=== PATIENT | male | born 1945 | race Caucasian/White ===

== ENCOUNTER 2019-02-26 00:57 | Emergency (ER) | payer MEDICARE, MEDICAID ==
[~2019-02-26] VITALS: Ht 165.1 cm; Wt 48.7 kg
[~2019-02-26 00:57] MED LIST: ALBU18HF INH; ATOR40TA78 PO; BUDE0.5A INH; BUDE10.2 INH; DULO30CA2 PO; GUAI200T3 PO; LEVO750T26 PO; MAGNILIFE; NAPR500T8 PO; PRED10TA PO; TAMS-11 PO
--- NOTE | 2019-02-26 01:20 | NUR ---
Report received and care assumed. Pt resting with no s/s of acute distress. Awaiting ERP.
--- NOTE | 2019-02-26 01:53 | NUR ---
Lab at bedside.
[2019-02-26 02:02] LABS: BASOPHILS # (AUTO) 0.05 x10^3/uL (0-0.1); BASOPHILS % (AUTO) 1 % (0-1); EOSINOPHILS # (AUTO) 0.13 x10^3/uL (0-0.4); EOSINOPHILS % (AUTO) 2 % (1-7); LYMPHOCYTES # (AUTO) 2.72 x10^3/uL (1-3.4); LYMPHOCYTES % (AUTO) 32 % (22-44); MD NO; MEAN CORPUSCULAR HEMOGLOBIN 35.3 pg (27.5-34.5); MEAN CORPUSCULAR HGB CONC 33.5 g/dL (33.2-36.2); MEAN CORPUSCULAR VOLUME 105.3 fL (81-97); MEAN PLATELET VOLUME 6.6 fL (7.4-10.4); MONOCYTES # (AUTO) 0.52 x10^3/uL (0.2-0.8); MONOCYTES % (AUTO) 6 % (2-9); NEUTROPHILS # (AUTO) 5.07 x10^3/uL (1.8-6.8); NEUTROPHILS % (AUTO) 60 % (42-75); PLATELET COUNT 211 x10^3/uL (130-400); RED BLOOD COUNT 3.78 x10^6/uL (4.38-5.82); RED CELL DISTRIBUTION WIDTH 14.4 % (9.4-14.8)
[2019-02-26 02:13] LABS: ALANINE AMINOTRANSFERASE 16 U/L (12-78); ALBUMIN 3.4 g/dL (3.4-5.0); ANION GAP 4 mmol/L (5-15); CALCIUM 8.3 mg/dL (8.5-10.1); CHLORIDE 106 mmol/L (98-107); CREATININE 0.68 mg/dL (0.7-1.3)
[2019-02-26 02:17] LABS: ALKALINE PHOSPHATASE 39 U/L (45-117); BILIRUBIN,TOTAL 0.3 mg/dL (0.2-1.0); TOTAL PROTEIN 6.3 g/dL (6.4-8.2); TROPONIN I < 0.015 ng/mL (0.000-0.045)
--- NOTE | 2019-02-26 02:50 | NUR ---
Assisted pt with urinal at bedside. No further needs expressed. Awaiting xray results. Call light in reach.
[2019-02-26] MEDS ORDERED: ACETAMINOPHEN 500 MG TABLET PO ONE (03:30)
[2019-02-26] MEDS ORDERED: ACETAMINOPHEN 500 MG TABLET ONE (03:35)
[2019-02-26 03:54] VITALS: BP 124/91
== END 2019-02-26 03:58 | disposition home or self-care (01) ==
LOC: ED 02:34
DX: R07.89 Other chest pain (principal); M79.602 Pain in left arm; R06.02 Shortness of breath; I25.10 Atherosclerotic heart disease of native coronary artery without angina pectoris; I10 Essential (primary) hypertension; Z98.61 Coronary angioplasty status
CPT/HCPCS: 36415; 71045; 80053; 84484; 85025; 93005; 99284

== ENCOUNTER 2019-03-02 05:08 | Observation (INO) | payer MEDICARE, MEDICAID ==
[2019-03-02] VITALS (7 sets, daily range): BP systolic 113–175; BP diastolic 73–90
[~2019-03-02] VITALS: Ht 170.2 cm; Wt 53.0 kg
[2019-03-02] MEDS ORDERED: MORPHINE SULFATE 4 MG/ML, 1ML ONE (05:49)
[2019-03-02] MEDS: MORPHINE SULFATE 4 MG/ML, 1ML IVPush PRN ×2 (05:51→09:32)
[2019-03-02 06:07] LABS: ALANINE AMINOTRANSFERASE 16 U/L (12-78); ALBUMIN 3.4 g/dL (3.4-5.0); ANION GAP 3 mmol/L (5-15); CALCIUM 8.3 mg/dL (8.5-10.1); CHLORIDE 107 mmol/L (98-107); CREATININE 0.69 mg/dL (0.7-1.3)
[2019-03-02 06:12] LABS: ALKALINE PHOSPHATASE 32 U/L (45-117); BILIRUBIN,TOTAL 0.4 mg/dL (0.2-1.0); TOTAL PROTEIN 6.4 g/dL (6.4-8.2); TROPONIN I < 0.015 ng/mL (0.000-0.045)
--- NOTE | 2019-03-02 06:59 | NUR ---
received report from Aejordyn. pt upright on gurney with eyes closed, [place] but responds approp to staff, NAD, comfort measures provided, call light within reach.
[2019-03-02 07:32] LABS: MEAN CORPUSCULAR HEMOGLOBIN 35.2 pg (27.5-34.5); MEAN CORPUSCULAR HGB CONC 33.5 g/dL (33.2-36.2); MEAN CORPUSCULAR VOLUME 105.3 fL (81-97); MEAN PLATELET VOLUME 6.6 fL (7.4-10.4); PLATELET COUNT 211 x10^3/uL (130-400); RED BLOOD COUNT 3.79 x10^6/uL (4.38-5.82); RED CELL DISTRIBUTION WIDTH 14.4 % (9.4-14.8)
[2019-03-02 07:34] LABS: BASOPHILS # (AUTO) 0.02 x10^3/uL (0-0.1); BASOPHILS % (AUTO) 0 % (0-1); EOSINOPHILS # (AUTO) 0.24 x10^3/uL (0-0.4); EOSINOPHILS % (AUTO) 4 % (1-7); LYMPHOCYTES # (AUTO) 1.71 x10^3/uL (1-3.4); LYMPHOCYTES % (AUTO) 29 % (22-44); MD SCAN; MONOCYTES # (AUTO) 0.55 x10^3/uL (0.2-0.8); MONOCYTES % (AUTO) 9 % (2-9); NEUTROPHILS # (AUTO) 3.38 x10^3/uL (1.8-6.8); NEUTROPHILS % (AUTO) 57 % (42-75)
--- NOTE | 2019-03-02 07:58 | NUR ---
pt remains upright on gurney with eyes closed, [place] but responds approp to staff, NAD, comfort measures provided, call light within reach.
--- NOTE | 2019-03-02 08:16 | NUR ---
Pt to be admitted to [facility], room 511-1. Report called to Juanita.
[2019-03-02] MEDS ORDERED: NITROGLYCERIN 0.4 MG BOTTLE (25 TABS) SL ONE (09:05)
[2019-03-02] MEDS ORDERED: NITROGLYCERIN 0.4 MG/SPRAY SL PRN (09:30)
[2019-03-02] MEDS ORDERED: NITROGLYCERIN 0.4 MG BOTTLE (25 TABS) SL PRN (09:30)
[2019-03-02] MEDS ORDERED: ONDANSETRON 2MG/ML, 2ML IVPush PRN (10:30)
[2019-03-02] MEDS ORDERED: LABETALOL 5MG/ML, 20ML IVPush PRN (10:30)
[2019-03-02] MEDS ORDERED: morphine SULFATE 10 MG/ML, 1ML IVPush PRN (10:30)
[2019-03-02] MEDS: SODIUM CHLORIDE 0.9% 1,000 ML IV SCH (11:06)
[2019-03-02] MEDS: ENOXAPARIN 40 MG/0.4 ML SQ SCH (11:09)
[2019-03-02 12:01] LABS: TROPONIN I < 0.015 ng/mL (0.000-0.045)
[2019-03-02] MEDS ORDERED: GADOBUTROL 7.5 MMOL/7.5 ML PFS ONE (12:01)
[2019-03-02] MEDS: CYCLOBENZAPRINE 10 MG TABLET PO PRN (12:32)
[2019-03-02] MEDS ORDERED: METH500T97 PO (13:31)
[2019-03-02] MEDS ORDERED: IBUP-1222 PO (13:31)
[2019-03-02] MEDS ORDERED: DULO30CA43 PO (13:31)
[2019-03-02 16:59] LABS: TROPONIN I < 0.015 ng/mL (0.000-0.045)
[2019-03-02] MEDS: ACETAMINOPHEN 325 MG TABLET PO PRN (17:58)
[2019-03-02] MEDS ORDERED: ATORVASTATIN 40 MG TABLET PO SCH (21:00)
[2019-03-02] MEDS ORDERED: BUDESONIDE 0.5 MG/2 ML INHA INH SCH (21:00)
[2019-03-02] MEDS: CALCIUM CARBONATE 500 MG TAB.CHEW PO SCH (21:25)
[2019-03-02] MEDS: LISINOPRIL 10 MG TABLET PO SCH (21:25)
[2019-03-02 22:51] LABS: TROPONIN I < 0.015 ng/mL (0.000-0.045)
[2019-03-03] MEDS: ACETAMINOPHEN 325 MG TABLET PO PRN (00:36)
[2019-03-03] MEDS: CYCLOBENZAPRINE 10 MG TABLET PO PRN (00:36)
[2019-03-03 00:37] VITALS: BP 148/74
[2019-03-03 05:07] LABS: BASOPHILS # (AUTO) 0.02 x10^3/uL (0-0.1); BASOPHILS % (AUTO) 0 % (0-1); EOSINOPHILS # (AUTO) 0.24 x10^3/uL (0-0.4); EOSINOPHILS % (AUTO) 4 % (1-7); LYMPHOCYTES # (AUTO) 1.67 x10^3/uL (1-3.4); LYMPHOCYTES % (AUTO) 28 % (22-44); MD NO; MEAN CORPUSCULAR HEMOGLOBIN 34.1 pg (27.5-34.5); MEAN CORPUSCULAR HGB CONC 33.1 g/dL (33.2-36.2); MEAN CORPUSCULAR VOLUME 103.1 fL (81-97); MEAN PLATELET VOLUME 6.5 fL (7.4-10.4); MONOCYTES # (AUTO) 0.52 x10^3/uL (0.2-0.8); MONOCYTES % (AUTO) 9 % (2-9); NEUTROPHILS # (AUTO) 3.64 x10^3/uL (1.8-6.8); NEUTROPHILS % (AUTO) 60 % (42-75); PLATELET COUNT 198 x10^3/uL (130-400); RED CELL DISTRIBUTION WIDTH 14.5 % (9.4-14.8)
[2019-03-03 05:12] LABS: ALBUMIN 3.4 g/dL (3.4-5.0); ANION GAP 2 mmol/L (5-15); CALCIUM 8.6 mg/dL (8.5-10.1); CHLORIDE 106 mmol/L (98-107)
[2019-03-03 05:18] LABS: ALANINE AMINOTRANSFERASE 18 U/L (12-78); ALKALINE PHOSPHATASE 40 U/L (45-117); BILIRUBIN,TOTAL 0.5 mg/dL (0.2-1.0); CREATININE 0.67 mg/dL (0.7-1.3); TOTAL PROTEIN 6.4 g/dL (6.4-8.2)
[2019-03-03] MEDS: SODIUM CHLORIDE 0.9% 1,000 ML IV SCH (07:21)
[2019-03-03 07:40] VITALS: BP 136/76
[2019-03-03] MEDS: CALCIUM CARBONATE 500 MG TAB.CHEW PO SCH (08:40)
[2019-03-03] MEDS: LISINOPRIL 10 MG TABLET PO SCH (08:40)
[2019-03-03] MEDS: ENOXAPARIN 40 MG/0.4 ML SQ SCH (08:40)
[2019-03-03] MEDS ORDERED: REGADENOSON 0.4 MG/5 ML SYRINGE ONE (08:43)
[2019-03-03] MEDS ORDERED: TAMSULOSIN 0.4 MG CAP.ER.24H PO SCH (09:00)
[2019-03-03] MEDS ORDERED: LISI-167 PO (14:32)
[2019-03-03 15:26] VITALS: BP 110/83
== END 2019-03-03 15:55 | disposition home or self-care (01) ==
LOC: ED 05:42 → 5SO 07:54 → INTOOBSV 07:54 → 5SO 08:34 → DCLOUNGE 03-03 15:40
PROVIDERS: ADMIT Internal Medicine; ATTEND Internal Medicine
DX: R07.89 Other chest pain (principal); M79.602 Pain in left arm; I25.10 Atherosclerotic heart disease of native coronary artery without angina pectoris; J44.1 Chronic obstructive pulmonary disease with (acute) exacerbation; E83.52 Hypercalcemia; I10 Essential (primary) hypertension; G31.89 Other specified degenerative diseases of nervous system; Z87.891 Personal history of nicotine dependence; Z68.1 Body mass index [BMI] 19.9 or less, adult; Z95.5 Presence of coronary angioplasty implant and graft; Z59.0 Homelessness; Z79.899 Other long term (current) drug therapy
CPT/HCPCS: 36415; 70553; 71045; 78452; 80053; 83690; 83735; 84100; 84484; 85025; 92610; 93005; 93017; 96372; 96374; 96376; 97161; 99284; A9502; A9585; C9898; G0378; J1650; J2270; J2785; J7030

== ENCOUNTER 2019-03-31 10:31 | Emergency (ER) | payer MEDICARE, MEDICAID ==
[~2019-03-31] VITALS: Ht 170.2 cm; Wt 54.5 kg
[2019-03-31 13:19] VITALS: BP 119/65
== END 2019-03-31 13:12 | disposition home or self-care (01) ==
LOC: ED 12:15
DX: R05 Cough (principal); R42 Dizziness and giddiness; R53.1 Weakness; J44.9 Chronic obstructive pulmonary disease, unspecified; I10 Essential (primary) hypertension; I25.10 Atherosclerotic heart disease of native coronary artery without angina pectoris; Z98.61 Coronary angioplasty status
CPT/HCPCS: 36415; 71045; 80053; 83880; 84484; 85025; 93005; 99284

== ENCOUNTER 2019-06-27 16:20 | Inpatient (IN) | payer MEDICAID, MEDICARE, OTHER ==
[~2019-06-27] VITALS: Ht 170.2 cm; Wt 55.8 kg
[~2019-06-27 16:20] MED LIST changes: +ACET325T26 PO; +ALBU6.7H8 INH; +CLOP75TA52 PO; +DULO30CA44 PO; -GUAI200T3 PO; +GUAI200T37 PO; +IBUP-1222 PO; +LISI-167 PO; +METH500T97 PO; +RANI150C PO
--- NOTE | 2019-06-27 16:40 | NUR ---
[facility] "3-10 DAYS", 87% RA UPON ARRIVAL PER EMS, NOW 98% 2L NC. SKIN WARM, PINK, DRY. HX COPD, CHF, CVA, HTN, PA WITH CARDIAC STENT (2007). DENIES CP. PATIENT REPORTS GLF TODAY, DENIES HITTING HEAD/NECK PAIN/LOC. MANAGED CARE LIAISON ON PATIENT, AWAITING MD ORDERS, CALL LIGHT WITHIN REACH.
[2019-06-27] MEDS ORDERED: SODIUM CHLORIDE FLUSH 10ML SYR IVF ONE (17:00)
[2019-06-27] MEDS ORDERED: methylPREDNISolone SOD SUCC 125 MG/2 ML IV ONE (17:00)
[2019-06-27 17:12] LABS: ALBUMIN 3.8 g/dL (3.4-5.0); ANION GAP 3 mmol/L (5-15); CALCIUM 8.6 mg/dL (8.5-10.1); CHLORIDE 105 mmol/L (98-107); CREATININE 0.96 mg/dL (0.7-1.3)
[2019-06-27 17:13] LABS: BASOPHILS # (AUTO) 0.02 x10^3/uL (0-0.1); BASOPHILS % (AUTO) 0 % (0-1); EOSINOPHILS # (AUTO) 0.17 x10^3/uL (0-0.4); EOSINOPHILS % (AUTO) 2 % (1-7); LYMPHOCYTES # (AUTO) 1.42 x10^3/uL (1-3.4); LYMPHOCYTES % (AUTO) 18 % (22-44); MD NO; MEAN CORPUSCULAR HEMOGLOBIN 35.4 pg (27.5-34.5); MEAN CORPUSCULAR HGB CONC 33.9 g/dL (33.2-36.2); MEAN CORPUSCULAR VOLUME 104.6 fL (81-97); MEAN PLATELET VOLUME 7.2 fL (7.4-10.4); MONOCYTES # (AUTO) 0.85 x10^3/uL (0.2-0.8); MONOCYTES % (AUTO) 11 % (2-9); NEUTROPHILS # (AUTO) 5.38 x10^3/uL (1.8-6.8); NEUTROPHILS % (AUTO) 69 % (42-75); PLATELET COUNT 171 x10^3/uL (130-400); RED BLOOD COUNT 3.67 x10^6/uL (4.38-5.82); RED CELL DISTRIBUTION WIDTH 13.9 % (9.4-14.8)
--- NOTE | 2019-06-27 17:14 | NUR ---
VS UPDATED IN CHART, AWAITING RESULTS. RESP EVEN/UNLABORED. NADN.
[2019-06-27 17:15] LABS: TROPONIN I < 0.015 ng/mL (0.000-0.045)
[2019-06-27] MEDS ORDERED: methylPREDNISolone SOD SUCC 125 MG/2 ML ONE (17:16)
[2019-06-27] MEDS ORDERED: ALBUTEROL/IPRATROPIUM 2.5MG/0.5MG, 3 ML ONE ×2 (17:16→18:15)
[2019-06-27] MEDS: ALBUTEROL/IPRATROPIUM 2.5MG/0.5MG, 3 ML NPPB SCH ×2 (17:22→18:23)
--- NOTE | 2019-06-27 18:08 | NUR ---
VS UPDATED IN CHART, CHART UP FOR RECHECK. ALL RESULTS BACK. PATIENT SLEEPING IN RNEY, VISIBLE CHEST RISE AND FALL, NADN. AWAITING FURTHER ORDERS.
[2019-06-27] MEDS ORDERED: ONDANSETRON 2MG/ML, 2ML IVPush PRN (18:30)
[2019-06-27] MEDS ORDERED: SODIUM CHLORIDE FLUSH 10ML SYR IVF PRN (18:30)
[2019-06-27] MEDS ORDERED: ALBUTEROL/IPRATROPIUM 2.5MG/0.5MG, 3 ML HHN PRN (18:30)
[2019-06-27] MEDS ORDERED: ATOR-2 PO (18:41)
--- NOTE | 2019-06-27 19:24 | NUR ---
REPORT TO JOSLYN SAUL.
[2019-06-27] MEDS ORDERED: ALBUTEROL/IPRATROPIUM 2.5MG/0.5MG, 3 ML NPPB PRN (19:30)
[2019-06-27 20:02] VITALS: BP 105/69
[2019-06-27] MEDS: AZITHROMYCIN 500 MG in SODIUM CHLORIDE 0.9% 250 ML IV SCH (20:18)
[2019-06-27 21:31] LABS: RAPID INFLUENZA A Negative (Negative); RAPID INFLUENZA B Negative (Negative)
[2019-06-27] MEDS ORDERED: FLU VACC QS2019-20 36MOS UP/PF 0.5 ML IM-VACC ONE (22:30)
[2019-06-28 01:12] VITALS: BP 105/58
[2019-06-28] MEDS: methylPREDNISolone SOD SUCC 125 MG/2 ML IV SCH ×3 (04:40→21:16)
[2019-06-28 04:44] LABS: BASOPHILS # (AUTO) 0.01 x10^3/uL (0-0.1); BASOPHILS % (AUTO) 0 % (0-1); EOSINOPHILS % (AUTO) 0 % (1-7); LYMPHOCYTES # (AUTO) 0.76 x10^3/uL (1-3.4); LYMPHOCYTES % (AUTO) 12 % (22-44); MD NO; MEAN CORPUSCULAR HEMOGLOBIN 34.7 pg (27.5-34.5); MEAN CORPUSCULAR HGB CONC 32.9 g/dL (33.2-36.2); MEAN CORPUSCULAR VOLUME 105.6 fL (81-97); MEAN PLATELET VOLUME 7.1 fL (7.4-10.4); MONOCYTES # (AUTO) 0.13 x10^3/uL (0.2-0.8); MONOCYTES % (AUTO) 2 % (2-9); NEUTROPHILS # (AUTO) 5.42 x10^3/uL (1.8-6.8); NEUTROPHILS % (AUTO) 86 % (42-75); PLATELET COUNT 176 x10^3/uL (130-400); RED BLOOD COUNT 3.69 x10^6/uL (4.38-5.82); RED CELL DISTRIBUTION WIDTH 13.2 % (9.4-14.8)
[2019-06-28 04:54] LABS: ANION GAP 7 mmol/L (5-15); CALCIUM 8.5 mg/dL (8.5-10.1); CHLORIDE 108 mmol/L (98-107); CREATININE 0.77 mg/dL (0.7-1.3)
[2019-06-28 04:57] LABS: TROPONIN I < 0.015 ng/mL (0.000-0.045)
[2019-06-28] MEDS: ALBUTEROL/IPRATROPIUM 2.5MG/0.5MG, 3 ML NPPB SCH ×4 (07:44→18:47)
[2019-06-28 07:54] VITALS: BP 110/61
[2019-06-28 14:08] VITALS: BP 94/51
[2019-06-28 19:47] VITALS: BP 97/56
[2019-06-28] MEDS: AZITHROMYCIN 500 MG in SODIUM CHLORIDE 0.9% 250 ML IV SCH (20:09)
[2019-06-29 01:57] VITALS: BP 94/60
[2019-06-29] MEDS: methylPREDNISolone SOD SUCC 125 MG/2 ML IV SCH ×3 (05:13→21:18)
[2019-06-29] MEDS: ALBUTEROL/IPRATROPIUM 2.5MG/0.5MG, 3 ML NPPB SCH ×4 (06:49→19:14)
[2019-06-29 08:30] VITALS: BP 117/66
[2019-06-29] MEDS: ACETAMINOPHEN 325 MG TABLET PO PRN (11:15)
[2019-06-29] MEDS: LORATADINE 10 MG TABLET PO SCH (11:15)
[2019-06-29] MEDS: GUAIFENESIN ER 600 MG TABLET PO SCH ×2 (11:15→21:18)
[2019-06-29 13:39] VITALS: BP 123/67
[2019-06-29 19:31] VITALS: BP 100/57
[2019-06-29] MEDS: AZITHROMYCIN 500 MG in SODIUM CHLORIDE 0.9% 250 ML IV SCH (20:26)
[2019-06-29] MEDS: ATORVASTATIN 20 MG TABLET PO SCH (21:18)
[2019-06-30 02:03] VITALS: BP 122/72
[2019-06-30] MEDS: methylPREDNISolone SOD SUCC 125 MG/2 ML IV SCH ×3 (05:07→20:32)
[2019-06-30 05:37] LABS: BASOPHILS # (AUTO) 0.01 x10^3/uL (0-0.1); BASOPHILS % (AUTO) 0 % (0-1); EOSINOPHILS % (AUTO) 0 % (1-7); LYMPHOCYTES # (AUTO) 0.93 x10^3/uL (1-3.4); LYMPHOCYTES % (AUTO) 11 % (22-44); MD NO; MEAN CORPUSCULAR HEMOGLOBIN 34.4 pg (27.5-34.5); MEAN CORPUSCULAR VOLUME 104.2 fL (81-97); MONOCYTES # (AUTO) 0.24 x10^3/uL (0.2-0.8); MONOCYTES % (AUTO) 3 % (2-9); NEUTROPHILS # (AUTO) 7.35 x10^3/uL (1.8-6.8); NEUTROPHILS % (AUTO) 86 % (42-75); PLATELET COUNT 185 x10^3/uL (130-400); RED CELL DISTRIBUTION WIDTH 13.6 % (9.4-14.8)
[2019-06-30 05:43] LABS: ANION GAP 5 mmol/L (5-15); CALCIUM 8.4 mg/dL (8.5-10.1); CHLORIDE 109 mmol/L (98-107); CREATININE 0.84 mg/dL (0.7-1.3)
[2019-06-30] MEDS: ALBUTEROL/IPRATROPIUM 2.5MG/0.5MG, 3 ML NPPB SCH ×4 (06:30→20:06)
[2019-06-30 07:40] VITALS: BP 110/62
[2019-06-30] MEDS: GUAIFENESIN ER 600 MG TABLET PO SCH ×2 (08:46→20:32)
[2019-06-30] MEDS: LORATADINE 10 MG TABLET PO SCH (08:46)
[2019-06-30] MEDS: CLOPIDOGREL 75 MG TABLET PO SCH (08:47)
[2019-06-30] MEDS: ACETAMINOPHEN 325 MG TABLET PO PRN (13:19)
[2019-06-30 13:45] VITALS: BP 132/54
[2019-06-30 16:31] VITALS: BP 148/87
[2019-06-30] MEDS ORDERED: FLU VACC QS2019-20 36MOS UP/PF 0.5 ML IM-VACC ONE (18:30)
[2019-06-30 19:32] VITALS: BP 131/70
[2019-06-30] MEDS: ATORVASTATIN 20 MG TABLET PO SCH (20:32)
[2019-06-30] MEDS: DOXYCYCLINE 100MG TABLET PO SCH (20:32)
[2019-07-01 01:56] VITALS: BP 129/73
[2019-07-01] MEDS: ALBUTEROL/IPRATROPIUM 2.5MG/0.5MG, 3 ML NPPB SCH ×4 (06:53→18:56)
[2019-07-01 07:44] LABS: BASOPHILS # (AUTO) 0.02 x10^3/uL (0-0.1); BASOPHILS % (AUTO) 0 % (0-1); EOSINOPHILS % (AUTO) 0 % (1-7); LYMPHOCYTES # (AUTO) 1.41 x10^3/uL (1-3.4); LYMPHOCYTES % (AUTO) 18 % (22-44); MD NO; MEAN CORPUSCULAR HEMOGLOBIN 34.2 pg (27.5-34.5); MEAN CORPUSCULAR HGB CONC 32.8 g/dL (33.2-36.2); MEAN CORPUSCULAR VOLUME 104.3 fL (81-97); MEAN PLATELET VOLUME 7.2 fL (7.4-10.4); MONOCYTES # (AUTO) 0.46 x10^3/uL (0.2-0.8); MONOCYTES % (AUTO) 6 % (2-9); NEUTROPHILS # (AUTO) 5.79 x10^3/uL (1.8-6.8); NEUTROPHILS % (AUTO) 75 % (42-75); PLATELET COUNT 207 x10^3/uL (130-400); RED BLOOD COUNT 3.58 x10^6/uL (4.38-5.82); RED CELL DISTRIBUTION WIDTH 13.6 % (9.4-14.8)
[2019-07-01 07:53] LABS: ANION GAP 4 mmol/L (5-15); CALCIUM 8.4 mg/dL (8.5-10.1); CHLORIDE 107 mmol/L (98-107); CREATININE 0.66 mg/dL (0.7-1.3)
[2019-07-01] MEDS: DOXYCYCLINE 100MG TABLET PO SCH ×2 (08:43→20:40)
[2019-07-01] MEDS: methylPREDNISolone SOD SUCC 125 MG/2 ML IV SCH ×2 (08:43→20:40)
[2019-07-01] MEDS: CLOPIDOGREL 75 MG TABLET PO SCH (08:43)
[2019-07-01] MEDS: GUAIFENESIN ER 600 MG TABLET PO SCH ×2 (08:43→20:40)
[2019-07-01] MEDS: LORATADINE 10 MG TABLET PO SCH (08:43)
[2019-07-01 09:25] VITALS: BP 110/68
[2019-07-01 15:49] VITALS: BP 97/66
[2019-07-01 20:02] VITALS: BP 116/57
[2019-07-01] MEDS: ATORVASTATIN 20 MG TABLET PO SCH (20:40)
[2019-07-02 00:50] VITALS: BP 150/73
[2019-07-02] MEDS: ALBUTEROL/IPRATROPIUM 2.5MG/0.5MG, 3 ML NPPB SCH (07:57)
[2019-07-02 08:52] VITALS: BP 106/57
[2019-07-02] MEDS ORDERED: ALBUTEROL/IPRATROPIUM 2.5MG/0.5MG, 3 ML NPPB SCH (10:30)
[2019-07-02] MEDS: CLOPIDOGREL 75 MG TABLET PO SCH (10:36)
[2019-07-02] MEDS: methylPREDNISolone SOD SUCC 125 MG/2 ML IV SCH (10:36)
[2019-07-02] MEDS: LORATADINE 10 MG TABLET PO SCH (10:37)
[2019-07-02] MEDS: GUAIFENESIN ER 600 MG TABLET PO SCH (10:37)
[2019-07-02] MEDS: DOXYCYCLINE 100MG TABLET PO SCH (10:37)
[2019-07-02 12:03] VITALS: BP 115/62
[2019-07-02] MEDS ORDERED: PRED10TA PO (16:17)
[2019-07-02] MEDS ORDERED: GUAI600T31 PO (16:17)
[2019-07-02] MEDS ORDERED: DOXY100T PO (16:17)
== END 2019-07-02 18:30 | disposition home or self-care (01) | DRG 189 ==
LOC: ED 17:39 → 3N 19:22
PROVIDERS: ADMIT Internal Medicine; ATTEND Internal Medicine
DX: J96.01 Acute respiratory failure with hypoxia (principal); J44.0 Chronic obstructive pulmonary disease with (acute) lower respiratory infection; J44.1 Chronic obstructive pulmonary disease with (acute) exacerbation; E46 Unspecified protein-calorie malnutrition; Z68.1 Body mass index [BMI] 19.9 or less, adult; R07.81 Pleurodynia; I25.10 Atherosclerotic heart disease of native coronary artery without angina pectoris; J20.9 Acute bronchitis, unspecified; I10 Essential (primary) hypertension; F17.200 Nicotine dependence, unspecified, uncomplicated; Z95.5 Presence of coronary angioplasty implant and graft; Z82.49 Family history of ischemic heart disease and other diseases of the circulatory system; Z88.0 Allergy status to penicillin; Z88.8 Allergy status to other drugs, medicaments and biological substances; Z23 Encounter for immunization
CPT/HCPCS: 36415; 71045; 80048; 82040; 83605; 83880; 84484; 85025; 87040; 87400; 90686; 93005; 94640; 99285; G0378; J0456; J7620; J2930; J7050

== ENCOUNTER 2019-09-11 15:53 | Emergency (ER) | payer OTHER ==
[~2019-09-11] VITALS: Ht 170.2 cm; Wt 57.0 kg
[~2019-09-11 15:53] MED LIST changes: +ATOR-2 PO; +DOXY100T PO; +GUAI600T31 PO
[2019-09-11] MEDS ORDERED: ALBUTEROL/IPRATROPIUM 2.5MG/0.5MG, 3 ML ONE (16:47)
[2019-09-11 16:54] LABS: BASOPHILS # (AUTO) 0.01 x10^3/uL (0-0.1); BASOPHILS % (AUTO) 0 % (0-1); EOSINOPHILS # (AUTO) 0.19 x10^3/uL (0-0.4); EOSINOPHILS % (AUTO) 3 % (1-7); LYMPHOCYTES # (AUTO) 1.49 x10^3/uL (1-3.4); LYMPHOCYTES % (AUTO) 25 % (22-44); MD NO; MEAN CORPUSCULAR HGB CONC 33.6 g/dL (33.2-36.2); MEAN CORPUSCULAR VOLUME 100.9 fL (81-97); MONOCYTES # (AUTO) 0.59 x10^3/uL (0.2-0.8); MONOCYTES % (AUTO) 10 % (2-9); NEUTROPHILS # (AUTO) 3.71 x10^3/uL (1.8-6.8); NEUTROPHILS % (AUTO) 62 % (42-75); PLATELET COUNT 207 x10^3/uL (130-400); RED CELL DISTRIBUTION WIDTH 14.1 % (9.4-14.8)
[2019-09-11] MEDS ORDERED: ALBUTEROL/IPRATROPIUM 2.5MG/0.5MG, 3 ML NPPB ONE (17:00)
[2019-09-11] MEDS ORDERED: SODIUM CHLORIDE FLUSH 10ML SYR IVF ONE (17:00)
[2019-09-11] MEDS ORDERED: SODIUM CHLORIDE 0.9% 1,000ML IVBOLUS ONE (17:00)
[2019-09-11 17:02] LABS: ALANINE AMINOTRANSFERASE 14 U/L (12-78); ALBUMIN 3.8 g/dL (3.4-5.0); ANION GAP 4 mmol/L (5-15); CHLORIDE 107 mmol/L (98-107); CREATININE 0.85 mg/dL (0.7-1.3)
[2019-09-11 17:04] LABS: ALKALINE PHOSPHATASE 60 U/L (45-117); BILIRUBIN,TOTAL 0.5 mg/dL (0.2-1.0); TOTAL PROTEIN 7.2 g/dL (6.4-8.2)
[2019-09-11 17:45] VITALS: BP 138/70
--- NOTE | 2019-09-11 17:46 | NUR ---
pt resting back in bed, respirations even and unlabored. pt desat while asleep on RA, placed on NC and came up to mid 90's. additional blanket placed for pt comfort. NAD noted at this time. No further needs at this time. Side rail up, call light in reach.
--- NOTE | 2019-09-11 19:10 | NUR ---
PT AMBULATES WELL INDEPENDENTLY MAINTAINING O2 SAT 93% ON RA. AMBULATES TO BATHROOM.
== END 2019-09-11 19:31 | disposition home or self-care (01) ==
LOC: ED 16:39
DX: J44.1 Chronic obstructive pulmonary disease with (acute) exacerbation (principal); I25.10 Atherosclerotic heart disease of native coronary artery without angina pectoris; I10 Essential (primary) hypertension; Z98.61 Coronary angioplasty status; Z95.5 Presence of coronary angioplasty implant and graft
CPT/HCPCS: 36415; 71045; 80053; 83605; 84145; 85025; 87040; 93005; 94640; 99284; J7030; J7620; 99283

== ENCOUNTER 2019-10-03 17:15 | Inpatient (IN) | payer OTHER ==
[~2019-10-03] VITALS: Ht 170.2 cm; Wt 57.0 kg
--- NOTE | 2019-10-03 17:26 | NUR ---
PT BIB [facility] FOR SOB, INCREASED WOB AND O2 NEED. PER EMS, PT HAS HX COPD AND DOES NOT WEAR O2 AT HOME. PT RECEIVED 400ML NS EN ROUTE, BREATHING TX X 2, AND O2 THERAPY AT 4L NC. PT AAO X 4, TRIPOD POSITIONING, ACCESSORY MUSCLE USE. PT HAS STRONG COUGH WITH SOB POST COUGH. PT DRESSED IN GOWN AND ON FULL MONITOR. SIDERAIL X [address] CALL LIGHT WITHIN REACH. PIV ESTABLISHED BY EMS EN ROUTE.
--- NOTE | 2019-10-03 17:39 | NUR ---
AT BEDSIDE FOR EXAM.
[2019-10-03] MEDS ORDERED: methylPREDNISolone SOD SUCC 125 MG/2 ML ONE (17:42)
--- NOTE | 2019-10-03 17:45 | NUR ---
PT MEDICATED PER ORDER, LAB AT BEDSIDE.
[2019-10-03] MEDS ORDERED: SODIUM CHLORIDE FLUSH 10ML SYR IVF ONE (18:00)
[2019-10-03] MEDS ORDERED: methylPREDNISolone SOD SUCC 125 MG/2 ML IV ONE (18:00)
[2019-10-03 18:14] LABS: BASOPHILS # (AUTO) 0.01 x10^3/uL (0-0.1); BASOPHILS % (AUTO) 0 % (0-1); EOSINOPHILS # (AUTO) 0.08 x10^3/uL (0-0.4); EOSINOPHILS % (AUTO) 1 % (1-7); LYMPHOCYTES # (AUTO) 1.34 x10^3/uL (1-3.4); LYMPHOCYTES % (AUTO) 17 % (22-44); MD NO; MEAN CORPUSCULAR HEMOGLOBIN 34.1 pg (27.5-34.5); MEAN CORPUSCULAR HGB CONC 33.2 g/dL (33.2-36.2); MEAN CORPUSCULAR VOLUME 102.5 fL (81-97); MONOCYTES # (AUTO) 0.86 x10^3/uL (0.2-0.8); MONOCYTES % (AUTO) 11 % (2-9); NEUTROPHILS # (AUTO) 5.67 x10^3/uL (1.8-6.8); NEUTROPHILS % (AUTO) 71 % (42-75); PLATELET COUNT 230 x10^3/uL (130-400); RED BLOOD COUNT 3.72 x10^6/uL (4.38-5.82); RED CELL DISTRIBUTION WIDTH 14.3 % (9.4-14.8)
[2019-10-03] MEDS ORDERED: ALBUTEROL/IPRATROPIUM 2.5MG/0.5MG, 3 ML ONE ×2 (18:18→18:47)
[2019-10-03 18:23] LABS: ALBUMIN 3.9 g/dL (3.4-5.0); ANION GAP 5 mmol/L (5-15); CALCIUM 8.5 mg/dL (8.5-10.1); CHLORIDE 105 mmol/L (98-107)
[2019-10-03] MEDS: ALBUTEROL/IPRATROPIUM 2.5MG/0.5MG, 3 ML NPPB SCH ×3 (18:25→22:05)
[2019-10-03 18:28] LABS: ALANINE AMINOTRANSFERASE 9 U/L (12-78); ALKALINE PHOSPHATASE 67 U/L (45-117); BILIRUBIN,TOTAL 0.6 mg/dL (0.2-1.0); CREATININE 0.78 mg/dL (0.7-1.3); TOTAL PROTEIN 7.6 g/dL (6.4-8.2); TROPONIN I < 0.015 ng/mL (0.000-0.045)
[2019-10-03] MEDS ORDERED: SODIUM CHLORIDE FLUSH 10ML SYR IVF PRN (18:30)
[2019-10-03 18:39] LABS: INTERNATIONAL NORMALIZED RATIO 0.91 (0.93-1.1); PROTHROMBIN TIME 9.6 Seconds (9.6-11.5)
--- NOTE | 2019-10-03 18:41 | NUR ---
[facility] AT BEDSIDE.
[2019-10-03] MEDS ORDERED: POLYETHYLENE GLYCOL 17 GM PACKET PO PRN (19:00)
[2019-10-03] MEDS ORDERED: GUAIFENESIN/DM 200-20MG, 10ML UDC PO PRN (19:00)
[2019-10-03] MEDS ORDERED: ONDANSETRON ODT 4 MG PO PRN (19:00)
[2019-10-03] MEDS ORDERED: BISACODYL 10 MG SUPP PR PRN (19:00)
--- NOTE | 2019-10-03 19:55 | NUR ---
REPORT GIVEN TO DORYS SANCHEZ. PT TO TRANSFER TO INPATIENT STATUS.
[2019-10-03] MEDS ORDERED: ALBUTEROL/IPRATROPIUM 2.5MG/0.5MG, 3 ML NPPB PRN (20:30)
[2019-10-03] MEDS ORDERED: ATORVASTATIN 80 MG TABLET PO SCH (21:00)
[2019-10-03] MEDS ORDERED: LISINOPRIL 10 MG TABLET PO SCH (21:00)
[2019-10-03 21:02] VITALS: BP 131/70
[2019-10-03] MEDS: methylPREDNISolone SOD SUCC 125 MG/2 ML IVPush SCH (21:39)
[2019-10-03] MEDS: BUDESONIDE 0.5 MG/2 ML INHA NPPB SCH (22:05)
[2019-10-03] MEDS: NICOTINE 14MG/24 HR PATCH.TD24 TD SCH (22:07)
[2019-10-03] MEDS: HEPARIN 5,000 UNITS/ML, 1ML SQ SCH (22:07)
[2019-10-03] MEDS: ATORVASTATIN 20 MG TABLET PO SCH (22:07)
[2019-10-03] MEDS: ACETAMINOPHEN 325 MG TABLET PO PRN (22:11)
[2019-10-03] MEDS: SODIUM CHLORIDE FLUSH 10ML SYR IVF SCH (22:23)
[2019-10-03 22:41] VITALS: BP 131/70
[2019-10-04] MEDS: methylPREDNISolone SOD SUCC 125 MG/2 ML IVPush SCH ×4 (01:16→21:56)
[2019-10-04] MEDS: ALBUTEROL/IPRATROPIUM 2.5MG/0.5MG, 3 ML NPPB SCH ×4 (02:25→21:00)
[2019-10-04 03:47] VITALS: BP 91/46
[2019-10-04 04:45] VITALS: BP 102/53
[2019-10-04] MEDS: HEPARIN 5,000 UNITS/ML, 1ML SQ SCH ×3 (05:47→21:57)
[2019-10-04 06:24] LABS: BASOPHILS # (AUTO) 0.01 x10^3/uL (0-0.1); BASOPHILS % (AUTO) 0 % (0-1); EOSINOPHILS % (AUTO) 0 % (1-7); LYMPHOCYTES % (AUTO) 11 % (22-44); MD NO; MEAN CORPUSCULAR HEMOGLOBIN 33.9 pg (27.5-34.5); MEAN CORPUSCULAR HGB CONC 33.1 g/dL (33.2-36.2); MEAN CORPUSCULAR VOLUME 102.5 fL (81-97); MEAN PLATELET VOLUME 7.2 fL (7.4-10.4); MONOCYTES # (AUTO) 0.08 x10^3/uL (0.2-0.8); MONOCYTES % (AUTO) 1 % (2-9); NEUTROPHILS # (AUTO) 5.05 x10^3/uL (1.8-6.8); NEUTROPHILS % (AUTO) 88 % (42-75); PLATELET COUNT 231 x10^3/uL (130-400); RED BLOOD COUNT 3.83 x10^6/uL (4.38-5.82); RED CELL DISTRIBUTION WIDTH 14.3 % (9.4-14.8)
[2019-10-04 06:30] LABS: ANION GAP 5 mmol/L (5-15); CHLORIDE 107 mmol/L (98-107)
[2019-10-04 06:31] LABS: CREATININE 0.95 mg/dL (0.7-1.3)
[2019-10-04 06:56] VITALS: BP 116/67
[2019-10-04] MEDS ORDERED: CYANOCOBALAMIN 1,000 MCG/ML, 1ML IM ONE (07:00)
[2019-10-04] MEDS: BUDESONIDE 0.5 MG/2 ML INHA NPPB SCH ×2 (07:12→21:00)
[2019-10-04] MEDS: LISINOPRIL 5 MG TABLET PO SCH (08:30)
[2019-10-04] MEDS: TAMSULOSIN 0.4 MG CAP.ER.24H PO SCH (08:30)
[2019-10-04] MEDS: DOXYCYCLINE 100MG TABLET PO SCH ×2 (08:31→21:57)
[2019-10-04] MEDS: CLOPIDOGREL 75 MG TABLET PO SCH (08:31)
[2019-10-04] MEDS: SENNA/DOCUSATE TABLET PO SCH (08:31)
[2019-10-04] MEDS: SODIUM CHLORIDE FLUSH 10ML SYR IVF SCH ×2 (08:45→21:57)
[2019-10-04 15:28] VITALS: BP 110/63
[2019-10-04] MEDS: GUAIFENESIN 200 MG TABLET PO SCH ×2 (17:56→21:57)
[2019-10-04 18:49] VITALS: BP 98/61
[2019-10-04] MEDS: NICOTINE 14MG/24 HR PATCH.TD24 TD SCH (21:00)
[2019-10-04] MEDS: ATORVASTATIN 20 MG TABLET PO SCH (21:57)
[2019-10-05 00:29] VITALS: BP 101/60
[2019-10-05] MEDS: ALBUTEROL/IPRATROPIUM 2.5MG/0.5MG, 3 ML NPPB SCH ×4 (03:00→20:11)
[2019-10-05] MEDS: methylPREDNISolone SOD SUCC 125 MG/2 ML IVPush SCH ×4 (03:39→21:07)
[2019-10-05] MEDS: GUAIFENESIN 200 MG TABLET PO SCH ×4 (06:10→21:07)
[2019-10-05] MEDS: HEPARIN 5,000 UNITS/ML, 1ML SQ SCH ×3 (06:10→21:07)
[2019-10-05 06:36] LABS: BASOPHILS % (AUTO) 0 % (0-1); EOSINOPHILS % (AUTO) 0 % (1-7); LYMPHOCYTES # (AUTO) 0.79 x10^3/uL (1-3.4); LYMPHOCYTES % (AUTO) 7 % (22-44); MD NO; MEAN CORPUSCULAR HEMOGLOBIN 34.5 pg (27.5-34.5); MEAN CORPUSCULAR HGB CONC 33.7 g/dL (33.2-36.2); MEAN CORPUSCULAR VOLUME 102.3 fL (81-97); MONOCYTES # (AUTO) 0.43 x10^3/uL (0.2-0.8); MONOCYTES % (AUTO) 4 % (2-9); NEUTROPHILS # (AUTO) 9.77 x10^3/uL (1.8-6.8); NEUTROPHILS % (AUTO) 89 % (42-75); PLATELET COUNT 235 x10^3/uL (130-400); RED CELL DISTRIBUTION WIDTH 14.4 % (9.4-14.8)
[2019-10-05 06:38] LABS: CHLORIDE 106 mmol/L (98-107)
[2019-10-05] MEDS: BUDESONIDE 0.5 MG/2 ML INHA NPPB SCH ×2 (06:42→20:11)
[2019-10-05 06:44] LABS: ALANINE AMINOTRANSFERASE 8 U/L (12-78); ALKALINE PHOSPHATASE 59 U/L (45-117); ANION GAP 5 mmol/L (5-15); BILIRUBIN,TOTAL 0.2 mg/dL (0.2-1.0); CALCIUM 8.7 mg/dL (8.5-10.1); CHOL/HDL RATIO 3.4; CHOLESTEROL, TOTAL 160 mg/dL (140-239); CREATININE 0.71 mg/dL (0.7-1.3); HDL CHOL % 29 % (26-37); HDL CHOLESTEROL (DIRECT) 47 mg/dL (40-60); LDL CHOLESTEROL,CALCULATED 92 mg/dL (54-169); TOTAL PROTEIN 6.5 g/dL (6.4-8.2); TRIGLYCERIDES 106 mg/dL (50-200); VLDL CHOLESTEROL 21 mg/dL (0-25)
[2019-10-05 07:47] VITALS: BP 97/63
[2019-10-05] MEDS ORDERED: CYANOCOBALAMIN 1,000 MCG/ML, 1ML IM ONE (08:30)
[2019-10-05] MEDS: DOXYCYCLINE 100MG TABLET PO SCH ×2 (08:56→21:07)
[2019-10-05] MEDS: SODIUM CHLORIDE FLUSH 10ML SYR IVF SCH ×2 (08:57→21:09)
[2019-10-05] MEDS: SENNA/DOCUSATE TABLET PO SCH (08:57)
[2019-10-05] MEDS: LISINOPRIL 5 MG TABLET PO SCH (08:57)
[2019-10-05] MEDS: TAMSULOSIN 0.4 MG CAP.ER.24H PO SCH (08:57)
[2019-10-05] MEDS: CLOPIDOGREL 75 MG TABLET PO SCH (08:57)
[2019-10-05 13:34] VITALS: BP 100/63
[2019-10-05 19:53] VITALS: BP 98/60
[2019-10-05] MEDS: ATORVASTATIN 20 MG TABLET PO SCH (21:07)
[2019-10-05] MEDS: NICOTINE 14MG/24 HR PATCH.TD24 TD SCH (21:09)
[2019-10-06 00:50] VITALS: BP 106/63
[2019-10-06] MEDS: ALBUTEROL/IPRATROPIUM 2.5MG/0.5MG, 3 ML NPPB SCH ×4 (03:00→20:06)
[2019-10-06] MEDS: methylPREDNISolone SOD SUCC 125 MG/2 ML IVPush SCH ×4 (03:05→20:32)
[2019-10-06] MEDS: HEPARIN 5,000 UNITS/ML, 1ML SQ SCH ×4 (05:27→20:31)
[2019-10-06] MEDS: GUAIFENESIN 200 MG TABLET PO SCH ×4 (05:28→20:32)
[2019-10-06 06:01] LABS: BASOPHILS # (AUTO) 0.01 x10^3/uL (0-0.1); BASOPHILS % (AUTO) 0 % (0-1); EOSINOPHILS % (AUTO) 0 % (1-7); LYMPHOCYTES # (AUTO) 0.84 x10^3/uL (1-3.4); LYMPHOCYTES % (AUTO) 9 % (22-44); MD NO; MEAN CORPUSCULAR HEMOGLOBIN 34.1 pg (27.5-34.5); MEAN CORPUSCULAR HGB CONC 33.1 g/dL (33.2-36.2); MEAN PLATELET VOLUME 7.2 fL (7.4-10.4); MONOCYTES # (AUTO) 0.24 x10^3/uL (0.2-0.8); MONOCYTES % (AUTO) 2 % (2-9); NEUTROPHILS # (AUTO) 8.76 x10^3/uL (1.8-6.8); NEUTROPHILS % (AUTO) 89 % (42-75); PLATELET COUNT 252 x10^3/uL (130-400); RED BLOOD COUNT 3.65 x10^6/uL (4.38-5.82); RED CELL DISTRIBUTION WIDTH 14.3 % (9.4-14.8)
[2019-10-06 06:11] LABS: ANION GAP 3 mmol/L (5-15); CALCIUM 8.8 mg/dL (8.5-10.1); CHLORIDE 103 mmol/L (98-107)
[2019-10-06 06:13] LABS: CREATININE 0.83 mg/dL (0.7-1.3)
[2019-10-06] MEDS ORDERED: CYANOCOBALAMIN 1,000 MCG/ML, 1ML IM ONE (07:00)
[2019-10-06 08:30] VITALS: BP 98/57
[2019-10-06] MEDS: CLOPIDOGREL 75 MG TABLET PO SCH (08:41)
[2019-10-06] MEDS: LISINOPRIL 5 MG TABLET PO SCH ×3 (08:42→09:00)
[2019-10-06] MEDS: SODIUM CHLORIDE FLUSH 10ML SYR IVF SCH ×2 (08:42→20:32)
[2019-10-06] MEDS: SENNA/DOCUSATE TABLET PO SCH (08:42)
[2019-10-06] MEDS: TAMSULOSIN 0.4 MG CAP.ER.24H PO SCH (08:42)
[2019-10-06] MEDS: DOXYCYCLINE 100MG TABLET PO SCH ×2 (08:43→20:32)
[2019-10-06 08:45] VITALS: BP 78/44
[2019-10-06] MEDS: BUDESONIDE 0.5 MG/2 ML INHA NPPB SCH ×2 (09:00→20:06)
[2019-10-06] MEDS ORDERED: SODIUM CHLORIDE 0.9%, 500ML IVBOLUS ONE (09:00)
[2019-10-06 09:54] VITALS: BP 98/58
[2019-10-06 13:57] VITALS: BP 99/59
[2019-10-06 19:36] VITALS: BP 112/61
[2019-10-06] MEDS: NICOTINE 14MG/24 HR PATCH.TD24 TD SCH (20:31)
[2019-10-06] MEDS: ATORVASTATIN 20 MG TABLET PO SCH (20:32)
[2019-10-07 00:58] VITALS: BP 98/57
[2019-10-07] MEDS: ALBUTEROL/IPRATROPIUM 2.5MG/0.5MG, 3 ML NPPB SCH ×3 (02:43→15:00)
[2019-10-07] MEDS: methylPREDNISolone SOD SUCC 125 MG/2 ML IVPush SCH ×3 (03:03→15:22)
[2019-10-07] MEDS: GUAIFENESIN 200 MG TABLET PO SCH ×3 (05:33→15:21)
[2019-10-07] MEDS: HEPARIN 5,000 UNITS/ML, 1ML SQ SCH ×2 (05:39→14:00)
[2019-10-07 08:08] VITALS: BP 94/57
[2019-10-07] MEDS: TAMSULOSIN 0.4 MG CAP.ER.24H PO SCH (08:31)
[2019-10-07] MEDS: SENNA/DOCUSATE TABLET PO SCH (08:31)
[2019-10-07] MEDS: CLOPIDOGREL 75 MG TABLET PO SCH (08:31)
[2019-10-07] MEDS: DOXYCYCLINE 100MG TABLET PO SCH (08:31)
[2019-10-07] MEDS: SODIUM CHLORIDE FLUSH 10ML SYR IVF SCH (08:31)
[2019-10-07] MEDS: LISINOPRIL 5 MG TABLET PO SCH (08:32)
[2019-10-07] MEDS: BUDESONIDE 0.5 MG/2 ML INHA NPPB SCH (08:45)
[2019-10-07] MEDS ORDERED: SODIUM CHLORIDE 0.9% 1,000 ML IV SCH (09:00)
[2019-10-07] MEDS: ACETAMINOPHEN 325 MG TABLET PO PRN (10:01)
[2019-10-07 14:19] VITALS: BP 129/69
[2019-10-07] MEDS ORDERED: PRED5TAB PO (16:11)
[2019-10-07] MEDS ORDERED: SENN-193 PO (16:11)
[2019-10-07] MEDS ORDERED: DOXY100T PO (16:11)
[2019-10-07] MEDS ORDERED: BUDE0.5A NPPB (16:11)
[2019-10-07] MEDS ORDERED: IPRA3AMP30 NPPB (16:11)
[2019-10-07] MEDS ORDERED: GUAI200T37 PO (16:11)
[2019-10-07] MEDS ORDERED: CYAN100072 PO (16:14)
== END 2019-10-07 17:59 | disposition home or self-care (01) | DRG 189 ==
LOC: ED 18:29 → EDIP 18:30 → ED 18:43 → 4WST 20:46
PROVIDERS: ADMIT Internal Medicine; ATTEND Hospitalist
DX: J96.01 Acute respiratory failure with hypoxia (principal); J44.1 Chronic obstructive pulmonary disease with (acute) exacerbation; I50.32 Chronic diastolic (congestive) heart failure; Z88.0 Allergy status to penicillin; D53.9 Nutritional anemia, unspecified; Z66 Do not resuscitate; Z88.6 Allergy status to analgesic agent; E53.8 Deficiency of other specified B group vitamins; F17.200 Nicotine dependence, unspecified, uncomplicated; I11.0 Hypertensive heart disease with heart failure; I25.10 Atherosclerotic heart disease of native coronary artery without angina pectoris; N40.0 Benign prostatic hyperplasia without lower urinary tract symptoms; Z59.0 Homelessness; Z80.42 Family history of malignant neoplasm of prostate; Z86.73 Personal history of transient ischemic attack (TIA), and cerebral infarction without residual deficits; Z95.5 Presence of coronary angioplasty implant and graft
CPT/HCPCS: 36415; 71045; 80048; 80053; 80061; 82607; 83605; 83735; 83880; 84145; 84484; 85025; 85610; 85730; 87040; 93005; 93306; 94640; 99285; G0378; J1644; J7620; J7626; Q0162; J2930; J3420; J7030; J7040

== ENCOUNTER 2019-10-16 16:57 | Emergency (ER) | payer OTHER ==
[~2019-10-16] VITALS: Ht 170.2 cm; Wt 55.0 kg
[~2019-10-16 16:57] MED LIST changes: +BUDE0.5A NPPB; +CYAN100072 PO; +IPRA3AMP30 NPPB; +PRED5TAB PO; +SENN-193 PO
--- NOTE | 2019-10-16 17:09 | NUR ---
GEREMIAS. REPORT RECEIVED FROM EMS. PT C/O SOB WITH COUGH SINCE LAST NIGHT. PT STATES "I CAN'T SLEEP". PT'S AOX4. RESPS EVEN AND UNLABORED. HX OF COPD. BP/SPO2 MONITORS IN PLACE. CALL LIGHT WITHIN REACH. ALBUTELOL/DUONEB GIVEN HEAD CUSTODIAN. SPO2 >95% WITH RA AT THIS TIME.
[2019-10-16] MEDS ORDERED: ALBUTEROL/IPRATROPIUM 2.5MG/0.5MG, 3 ML NPPB ONE (17:30)
[2019-10-16] MEDS ORDERED: methylPREDNISolone SOD SUCC 125 MG/2 ML IV ONE (17:30)
[2019-10-16] MEDS ORDERED: ALBUTEROL/IPRATROPIUM 2.5MG/0.5MG, 3 ML ONE (17:36)
[2019-10-16] MEDS ORDERED: methylPREDNISolone SOD SUCC 125 MG/2 ML ONE (17:44)
--- NOTE | 2019-10-16 17:48 | NUR ---
PT MEDICATED PER EMAR. PT TOLERATED WELL.
[2019-10-16 17:55] LABS: BASOPHILS % (AUTO) 0 % (0-1); EOSINOPHILS % (AUTO) 0 % (1-7); LYMPHOCYTES # (AUTO) 1.15 x10^3/uL (1-3.4); LYMPHOCYTES % (AUTO) 11 % (22-44); MD NO; MEAN CORPUSCULAR HEMOGLOBIN 33.8 pg (27.5-34.5); MEAN CORPUSCULAR HGB CONC 33.6 g/dL (33.2-36.2); MEAN CORPUSCULAR VOLUME 100.8 fL (81-97); MEAN PLATELET VOLUME 6.9 fL (7.4-10.4); MONOCYTES # (AUTO) 0.19 x10^3/uL (0.2-0.8); MONOCYTES % (AUTO) 2 % (2-9); NEUTROPHILS # (AUTO) 9.65 x10^3/uL (1.8-6.8); NEUTROPHILS % (AUTO) 88 % (42-75); PLATELET COUNT 234 x10^3/uL (130-400); RED BLOOD COUNT 3.52 x10^6/uL (4.38-5.82); RED CELL DISTRIBUTION WIDTH 14.1 % (9.4-14.8)
[2019-10-16 18:02] LABS: ALBUMIN 3.1 g/dL (3.4-5.0); ANION GAP 4 mmol/L (5-15); CALCIUM 8.1 mg/dL (8.5-10.1); CHLORIDE 103 mmol/L (98-107); CREATININE 0.83 mg/dL (0.7-1.3)
--- NOTE | 2019-10-16 18:28 | NUR ---
PT RESTING IN [facility]. RESPS EVEN AND UNLABORED. CALL LIGHT WITHIN REACH.
--- NOTE | 2019-10-16 18:49 | NUR ---
REPORT GIVEN TO UBALDO SAUL.
--- NOTE | 2019-10-16 18:54 | NUR ---
Report received from DORYS To. This RN to assume care. Patient resting in [facility] with no complaints.
--- NOTE | 2019-10-16 19:28 | NUR ---
Patient ambulated down the marie without difficulty or shortness of breath. Patient has a steady gait.
[2019-10-16 19:52] VITALS: BP 116/63
--- NOTE | 2019-10-16 20:03 | NUR ---
Discharge instructions given. All questions and concerns addressed. Patient ambulatory with a steady gait; patient has walker. Belongings with patient.
== END 2019-10-16 20:05 | disposition home or self-care (01) ==
LOC: ED 17:32
DX: J43.9 Emphysema, unspecified (principal); Z72.9 Problem related to lifestyle, unspecified
CPT/HCPCS: 36415; 71045; 80048; 82040; 85025; 94640; 96374; 99283; J2930; J7620; 99284

== ENCOUNTER 2019-12-06 09:04 | Emergency (ER) | payer OTHER ==
[~2019-12-06] VITALS: Ht 170.2 cm; Wt 55.8 kg
[2019-12-06 09:16] VITALS: BP 104/50
--- NOTE | 2019-12-06 09:57 | NUR ---
TASK RN: PT SEEN BY DR SANTOS IN RESP TRIAGE. Patient/Caregiver given discharge instructions and they have confirmed that they understand the instructions. Patient ambulatory with steady gait.
== END 2019-12-06 09:57 | disposition home or self-care (01) ==
LOC: ED 09:33
DX: L03.114 Cellulitis of left upper limb (principal); L03.113 Cellulitis of right upper limb; L24.9 Irritant contact dermatitis, unspecified cause; R05 Cough; I10 Essential (primary) hypertension; I25.10 Atherosclerotic heart disease of native coronary artery without angina pectoris; J43.9 Emphysema, unspecified
CPT/HCPCS: 99281

== ENCOUNTER 2019-12-15 16:08 | Inpatient (IN) | payer OTHER ==
[~2019-12-15] VITALS: Ht 170.2 cm; Wt 53.4 kg
--- NOTE | 2019-12-15 16:37 | NUR ---
PT TO ROOM 36 PER [facility]. [facility], AND HAS BEEN HAVING DIFFICULTY WITH HIS BREATHING FOR THE LAST FEW DAYS. TODAY PATIENT WAS UNABLE TO WALK 3 FEET WITHOUT BEING SEVERE SOB. PT LUNGS ARE FULL OF RALES AND RHONCHI. PT HAS A VERY WEAK NON PRODUCTIVE COUGH. PT HAS A LONG HISTORY OF SMOKING AND DOES SUFFER FROM COPD. PT PLACED INTO GOWN, AND THAT PROVED TO BE VERY DIFFICULT FOR HIM TO BREATH THROUGH. PT PLACED ON MONITOR, AND HAS OXYGEN ON AT 2L NC. PT SATS ARE SUPPORTED WELL WITH 2L. WARM BLANKETS GIVEN, CALL LIGHT GIVEN, AND ONE SIDE RAIL UP PER PREQUEST. WILL CONTINUE TO MONITOR PATIENT. XRAY AT BEDSIDE.
[2019-12-15] MEDS ORDERED: ALBUTEROL/IPRATROPIUM 2.5MG/0.5MG, 3 ML ONE (16:53)
[2019-12-15] MEDS ORDERED: ALBUTEROL/IPRATROPIUM 2.5MG/0.5MG, 3 ML NPPB ONE (17:00)
[2019-12-15] MEDS ORDERED: SODIUM CHLORIDE FLUSH 10ML SYR IVF ONE (17:00)
--- NOTE | 2019-12-15 17:07 | NUR ---
BREATHING TREATMENT STARTED AFTER LAB DRAWS. PT GIVEN PO PREDNISONE AND TOOK WITHOUT DIFF. RN PRESENT WEARING APPROPRIATE EQUIPMENT DURING BREATHING TREATMENT.
[2019-12-15 17:32] LABS: BASOPHILS # (AUTO) 0.02 x10^3/uL (0-0.1); BASOPHILS % (AUTO) 0 % (0-1); EOSINOPHILS # (AUTO) 0.25 x10^3/uL (0-0.4); EOSINOPHILS % (AUTO) 2 % (1-7); LYMPHOCYTES # (AUTO) 1.44 x10^3/uL (1-3.4); LYMPHOCYTES % (AUTO) 14 % (22-44); MD NO; MEAN CORPUSCULAR HEMOGLOBIN 34.3 pg (27.5-34.5); MEAN CORPUSCULAR HGB CONC 33.4 g/dL (33.2-36.2); MEAN CORPUSCULAR VOLUME 102.7 fL (81-97); MEAN PLATELET VOLUME 6.9 fL (7.4-10.4); MONOCYTES # (AUTO) 0.46 x10^3/uL (0.2-0.8); MONOCYTES % (AUTO) 4 % (2-9); NEUTROPHILS # (AUTO) 8.28 x10^3/uL (1.8-6.8); NEUTROPHILS % (AUTO) 79 % (42-75); PLATELET COUNT 237 x10^3/uL (130-400); RED BLOOD COUNT 3.73 x10^6/uL (4.38-5.82); RED CELL DISTRIBUTION WIDTH 14.9 % (9.4-14.8)
[2019-12-15 17:45] LABS: ALBUMIN 3.4 g/dL (3.4-5.0); ANION GAP 5 mmol/L (5-15); CALCIUM 8.4 mg/dL (8.5-10.1); CHLORIDE 106 mmol/L (98-107)
[2019-12-15 17:50] LABS: ALANINE AMINOTRANSFERASE 17 U/L (12-78); ALKALINE PHOSPHATASE 55 U/L (45-117); BILIRUBIN,TOTAL 0.5 mg/dL (0.2-1.0); CREATININE 0.64 mg/dL (0.7-1.3); TOTAL PROTEIN 6.6 g/dL (6.4-8.2); TROPONIN I < 0.015 ng/mL (0.000-0.045)
--- NOTE | 2019-12-15 18:53 | NUR ---
PT TO BE ADMITTED. PT RESTING COMFORTABLY IN ROOM. WILL AWAIT ROOM ASSIGNMENT FOR ADMISSION.
[2019-12-15] MEDS ORDERED: SODIUM CHLORIDE FLUSH 10ML SYR IVF PRN (19:00)
--- NOTE | 2019-12-15 19:21 | NUR ---
PT RESTING IN BED. NO COMPLAINTS AT THIS TIME.
[2019-12-15] MEDS ORDERED: AZITHROMYCIN 500 MG in SODIUM CHLORIDE 0.9% 250 ML IV SCH (20:00)
[2019-12-15] MEDS ORDERED: ONDANSETRON 2MG/ML, 2ML IVPush PRN (20:00)
[2019-12-15] MEDS ORDERED: ALBUTEROL SULFATE 2.5 MG/3 ML NPPB PRN (20:00)
--- NOTE | 2019-12-15 20:26 | NUR ---
REPORT TO RN ON 385. PT READY FOR TRANSPORT.
[2019-12-15 21:00] VITALS: BP 122/81
[2019-12-15] MEDS: ATORVASTATIN 20 MG TABLET PO SCH (21:15)
[2019-12-15] MEDS: AZITHROMYCIN 500 MG in SODIUM CHLORIDE 0.9% 250 ML IV SCH (22:30)
[2019-12-16] MEDS: TEMPLATE NON-FORMULARY MED. (COMBIVENT RESPIMAT 2 PUFFS) PO PRN ×2 (00:15→05:30)
[2019-12-16 03:10] VITALS: BP 109/75
[2019-12-16 06:01] LABS: ANION GAP 4 mmol/L (5-15); CALCIUM 8.7 mg/dL (8.5-10.1); CHLORIDE 107 mmol/L (98-107)
[2019-12-16 06:03] LABS: CREATININE 0.66 mg/dL (0.7-1.3)
[2019-12-16 06:17] LABS: BASOPHILS % (AUTO) 0 % (0-1); EOSINOPHILS % (AUTO) 0 % (1-7); LYMPHOCYTES # (AUTO) 0.75 x10^3/uL (1-3.4); LYMPHOCYTES % (AUTO) 11 % (22-44); MD NO; MEAN CORPUSCULAR HEMOGLOBIN 34.5 pg (27.5-34.5); MEAN CORPUSCULAR HGB CONC 33.5 g/dL (33.2-36.2); MEAN PLATELET VOLUME 7.3 fL (7.4-10.4); MONOCYTES # (AUTO) 0.22 x10^3/uL (0.2-0.8); MONOCYTES % (AUTO) 3 % (2-9); NEUTROPHILS # (AUTO) 5.75 x10^3/uL (1.8-6.8); NEUTROPHILS % (AUTO) 86 % (42-75); PLATELET COUNT 218 x10^3/uL (130-400); RED BLOOD COUNT 3.79 x10^6/uL (4.38-5.82); RED CELL DISTRIBUTION WIDTH 14.4 % (9.4-14.8)
[2019-12-16 08:31] VITALS: BP 117/62
[2019-12-16] MEDS: FLUTICASONE/VILANTEROL 100-25MCG/INH INH SCH (09:00)
[2019-12-16] MEDS ORDERED: FLUTICASONE/VILANTEROL 100-25MCG/INH INH SCH (09:00)
[2019-12-16] MEDS: TAMSULOSIN 0.4 MG CAP.ER.24H PO SCH (09:31)
[2019-12-16] MEDS: CLOPIDOGREL 75 MG TABLET PO SCH (09:31)
[2019-12-16] MEDS: methylPREDNISolone SOD SUCC 40 MG/ML IV SCH ×2 (15:27→21:59)
[2019-12-16] MEDS: ACETAMINOPHEN 325 MG TABLET PO PRN (15:27)
[2019-12-16 15:46] VITALS: BP 90/59
[2019-12-16 19:53] VITALS: BP 112/79
[2019-12-16] MEDS: AZITHROMYCIN 500 MG in SODIUM CHLORIDE 0.9% 250 ML IV SCH (21:59)
[2019-12-16] MEDS: ATORVASTATIN 20 MG TABLET PO SCH (22:02)
[2019-12-17 03:55] VITALS: BP 104/63
[2019-12-17 08:00] VITALS: BP 114/69
[2019-12-17] MEDS ORDERED: FLUTICASONE/VILANTEROL 100-25MCG/INH INH SCH (09:00)
[2019-12-17] MEDS: methylPREDNISolone SOD SUCC 40 MG/ML IV SCH ×3 (09:30→21:59)
[2019-12-17] MEDS: FLUTICASONE/VILANTEROL 100-25MCG/INH INH SCH (09:30)
[2019-12-17] MEDS: TAMSULOSIN 0.4 MG CAP.ER.24H PO SCH (09:31)
[2019-12-17] MEDS: CLOPIDOGREL 75 MG TABLET PO SCH (09:31)
[2019-12-17 14:00] VITALS: BP 94/65
[2019-12-17 21:21] VITALS: BP 107/74
[2019-12-17] MEDS: CLOTRIM/BETAMETH 1%/0.05% CRM TP SCH (21:59)
[2019-12-17] MEDS: AZITHROMYCIN 500 MG in SODIUM CHLORIDE 0.9% 250 ML IV SCH (21:59)
[2019-12-17] MEDS: ATORVASTATIN 20 MG TABLET PO SCH (21:59)
[2019-12-18 02:57] VITALS: BP 113/72
[2019-12-18 07:30] VITALS: BP 111/72
[2019-12-18] MEDS: methylPREDNISolone SOD SUCC 40 MG/ML IV SCH ×3 (09:33→20:47)
[2019-12-18] MEDS: CLOPIDOGREL 75 MG TABLET PO SCH (09:33)
[2019-12-18] MEDS: TAMSULOSIN 0.4 MG CAP.ER.24H PO SCH (09:33)
[2019-12-18] MEDS: CLOTRIM/BETAMETH 1%/0.05% CRM TP SCH ×2 (09:34→20:47)
[2019-12-18] MEDS: FLUTICASONE/VILANTEROL 100-25MCG/INH INH SCH (09:34)
[2019-12-18] MEDS ORDERED: ENOXAPARIN 40 MG/0.4 ML ONE (11:32)
[2019-12-18 12:30] VITALS: BP 117/75
[2019-12-18 18:56] VITALS: BP 125/70
[2019-12-18] MEDS: ATORVASTATIN 20 MG TABLET PO SCH (20:47)
[2019-12-18] MEDS: AZITHROMYCIN 500 MG in SODIUM CHLORIDE 0.9% 250 ML IV SCH (22:07)
[2019-12-19 00:50] VITALS: BP 133/68
[2019-12-19 05:44] LABS: BASOPHILS % (AUTO) 0 % (0-1); EOSINOPHILS % (AUTO) 0 % (1-7); LYMPHOCYTES # (AUTO) 0.94 x10^3/uL (1-3.4); LYMPHOCYTES % (AUTO) 9 % (22-44); MD NO; MEAN CORPUSCULAR HGB CONC 33.4 g/dL (33.2-36.2); MEAN PLATELET VOLUME 7.4 fL (7.4-10.4); MONOCYTES # (AUTO) 0.35 x10^3/uL (0.2-0.8); MONOCYTES % (AUTO) 3 % (2-9); NEUTROPHILS # (AUTO) 9.04 x10^3/uL (1.8-6.8); NEUTROPHILS % (AUTO) 88 % (42-75); PLATELET COUNT 204 x10^3/uL (130-400); RED BLOOD COUNT 3.75 x10^6/uL (4.38-5.82); RED CELL DISTRIBUTION WIDTH 14.4 % (9.4-14.8)
[2019-12-19 05:47] LABS: ANION GAP 4 mmol/L (5-15); CALCIUM 8.6 mg/dL (8.5-10.1); CHLORIDE 108 mmol/L (98-107)
[2019-12-19 05:48] LABS: CREATININE 0.72 mg/dL (0.7-1.3)
[2019-12-19 07:14] VITALS: BP 116/68
[2019-12-19] MEDS: CLOPIDOGREL 75 MG TABLET PO SCH (08:18)
[2019-12-19] MEDS: TAMSULOSIN 0.4 MG CAP.ER.24H PO SCH (08:18)
[2019-12-19] MEDS: FLUTICASONE/VILANTEROL 100-25MCG/INH INH SCH (08:18)
[2019-12-19] MEDS: methylPREDNISolone SOD SUCC 40 MG/ML IV SCH ×3 (08:18→21:21)
[2019-12-19] MEDS: CLOTRIM/BETAMETH 1%/0.05% CRM TP SCH ×2 (08:19→21:29)
[2019-12-19] MEDS: SENNA/DOCUSATE TABLET PO SCH (10:28)
[2019-12-19] MEDS: GUAIFENESIN ER 600 MG TABLET PO SCH ×2 (10:28→21:20)
[2019-12-19] MEDS: ACETAMINOPHEN 325 MG TABLET PO PRN (10:28)
[2019-12-19] MEDS ORDERED: ALBUTEROL/IPRATROPIUM 2.5MG/0.5MG, 3 ML NPPB SCH (11:00)
[2019-12-19] MEDS: NICOTINE 14MG/24 HR PATCH.TD24 TD SCH (12:30)
[2019-12-19 12:32] VITALS: BP 151/69
[2019-12-19] MEDS: ALBUTEROL/IPRATROPIUM 2.5MG/0.5MG, 3 ML NPPB SCH ×2 (15:35→20:10)
[2019-12-19 19:15] VITALS: BP 137/70
[2019-12-19] MEDS: ATORVASTATIN 20 MG TABLET PO SCH (21:20)
[2019-12-19] MEDS: AZITHROMYCIN 500 MG in SODIUM CHLORIDE 0.9% 250 ML IV SCH (22:34)
[2019-12-20 01:07] VITALS: BP 124/70
[2019-12-20 06:51] VITALS: BP 146/71
[2019-12-20] MEDS: ALBUTEROL/IPRATROPIUM 2.5MG/0.5MG, 3 ML NPPB SCH ×4 (07:30→20:08)
[2019-12-20] MEDS: methylPREDNISolone SOD SUCC 40 MG/ML IV SCH (09:08)
[2019-12-20] MEDS: GUAIFENESIN ER 600 MG TABLET PO SCH ×2 (09:08→20:23)
[2019-12-20] MEDS: TAMSULOSIN 0.4 MG CAP.ER.24H PO SCH (09:08)
[2019-12-20] MEDS: FLUTICASONE/VILANTEROL 100-25MCG/INH INH SCH (09:08)
[2019-12-20] MEDS: CLOPIDOGREL 75 MG TABLET PO SCH (09:08)
[2019-12-20] MEDS: CLOTRIM/BETAMETH 1%/0.05% CRM TP SCH ×2 (09:09→20:24)
[2019-12-20] MEDS: SENNA/DOCUSATE TABLET PO SCH (09:11)
[2019-12-20] MEDS: NICOTINE 14MG/24 HR PATCH.TD24 TD SCH (09:19)
[2019-12-20 12:57] VITALS: BP 112/63
[2019-12-20] MEDS: ENOXAPARIN 40 MG/0.4 ML SQ SCH (13:00)
[2019-12-20 20:00] VITALS: BP 128/66
[2019-12-20] MEDS: ATORVASTATIN 20 MG TABLET PO SCH (20:23)
[2019-12-20] MEDS ORDERED: AZITHROMYCIN 500 MG TABLET PO SCH (21:00)
[2019-12-21 00:09] VITALS: BP 120/64
[2019-12-21 06:36] VITALS: BP 155/74
[2019-12-21] MEDS: ALBUTEROL/IPRATROPIUM 2.5MG/0.5MG, 3 ML NPPB SCH ×4 (07:45→20:00)
[2019-12-21] MEDS: GUAIFENESIN ER 600 MG TABLET PO SCH ×2 (10:13→21:40)
[2019-12-21] MEDS: TAMSULOSIN 0.4 MG CAP.ER.24H PO SCH (10:13)
[2019-12-21] MEDS: SENNA/DOCUSATE TABLET PO SCH (10:13)
[2019-12-21] MEDS: CLOPIDOGREL 75 MG TABLET PO SCH (10:13)
[2019-12-21] MEDS: NICOTINE 14MG/24 HR PATCH.TD24 TD SCH (10:17)
[2019-12-21] MEDS: FLUTICASONE/VILANTEROL 100-25MCG/INH INH SCH (10:23)
[2019-12-21] MEDS: CLOTRIM/BETAMETH 1%/0.05% CRM TP SCH ×2 (10:24→21:40)
[2019-12-21] MEDS: ENOXAPARIN 40 MG/0.4 ML SQ SCH (13:00)
[2019-12-21 13:40] VITALS: BP 89/56
[2019-12-21 18:21] VITALS: BP 107/64
[2019-12-21] MEDS: ATORVASTATIN 20 MG TABLET PO SCH (21:40)
[2019-12-22 00:05] VITALS: BP 136/72
[2019-12-22] MEDS: ALBUTEROL/IPRATROPIUM 2.5MG/0.5MG, 3 ML NPPB SCH ×4 (06:40→19:26)
[2019-12-22 08:05] VITALS: BP 102/66
[2019-12-22] MEDS: CLOTRIM/BETAMETH 1%/0.05% CRM TP SCH ×2 (08:51→21:25)
[2019-12-22] MEDS: SENNA/DOCUSATE TABLET PO SCH (08:51)
[2019-12-22] MEDS: CLOPIDOGREL 75 MG TABLET PO SCH (08:52)
[2019-12-22] MEDS: TAMSULOSIN 0.4 MG CAP.ER.24H PO SCH (08:52)
[2019-12-22] MEDS: GUAIFENESIN ER 600 MG TABLET PO SCH ×2 (08:52→21:25)
[2019-12-22] MEDS: FLUTICASONE/VILANTEROL 100-25MCG/INH INH SCH (08:53)
[2019-12-22] MEDS: NICOTINE 14MG/24 HR PATCH.TD24 TD SCH (10:02)
[2019-12-22 10:48] LABS: ANION GAP 6 mmol/L (5-15); CALCIUM 8.3 mg/dL (8.5-10.1); CHLORIDE 104 mmol/L (98-107); CREATININE 0.84 mg/dL (0.7-1.3)
[2019-12-22 10:51] LABS: TROPONIN I < 0.015 ng/mL (0.000-0.045)
[2019-12-22 11:00] LABS: MEAN CORPUSCULAR HEMOGLOBIN 33.9 pg (27.5-34.5); MEAN CORPUSCULAR HGB CONC 33.1 g/dL (33.2-36.2); MEAN CORPUSCULAR VOLUME 102.4 fL (81-97); MEAN PLATELET VOLUME 6.8 fL (7.4-10.4); PLATELET COUNT 240 x10^3/uL (130-400); RED BLOOD COUNT 3.87 x10^6/uL (4.38-5.82); RED CELL DISTRIBUTION WIDTH 14.2 % (9.4-14.8)
[2019-12-22 11:02] LABS: BASOPHILS # (AUTO) 0.01 x10^3/uL (0-0.1); BASOPHILS % (AUTO) 0 % (0-1); EOSINOPHILS # (AUTO) 0.01 x10^3/uL (0-0.4); EOSINOPHILS % (AUTO) 0 % (1-7); LYMPHOCYTES # (AUTO) 2.18 x10^3/uL (1-3.4); LYMPHOCYTES % (AUTO) 16 % (22-44); MD MORPH REVIEW ONLY; MONOCYTES # (AUTO) 0.13 x10^3/uL (0.2-0.8); MONOCYTES % (AUTO) 1 % (2-9); NEUTROPHILS # (AUTO) 11.01 x10^3/uL (1.8-6.8); NEUTROPHILS % (AUTO) 83 % (42-75)
[2019-12-22 11:03] LABS: ANISOCYTOSIS 1+
[2019-12-22 11:04] LABS: <PLATELET ESTIMATE> ADEQUATE; <PLT MORPHOLOGY> NORMAL PLT MORPH
[2019-12-22] MEDS ORDERED: NITROGLYCERIN 0.4 MG/SPRAY SL PRN (12:00)
[2019-12-22] MEDS ORDERED: NITROGLYCERIN 0.4 MG BOTTLE (25 TABS) SL PRN (12:00)
[2019-12-22] MEDS: ENOXAPARIN 40 MG/0.4 ML SQ SCH (13:00)
[2019-12-22 15:05] VITALS: BP 97/62
[2019-12-22 17:08] LABS: TROPONIN I < 0.015 ng/mL (0.000-0.045)
[2019-12-22 18:43] VITALS: BP 95/60
[2019-12-22] MEDS: ATORVASTATIN 20 MG TABLET PO SCH (21:25)
[2019-12-22 22:52] LABS: TROPONIN I < 0.015 ng/mL (0.000-0.045)
[2019-12-23 00:25] VITALS: BP 110/68
[2019-12-23 05:10] LABS: BASOPHILS # (AUTO) 0.01 x10^3/uL (0-0.1); BASOPHILS % (AUTO) 0 % (0-1); EOSINOPHILS # (AUTO) 0.01 x10^3/uL (0-0.4); EOSINOPHILS % (AUTO) 0 % (1-7); LYMPHOCYTES # (AUTO) 1.65 x10^3/uL (1-3.4); LYMPHOCYTES % (AUTO) 19 % (22-44); MD NO; MEAN CORPUSCULAR HEMOGLOBIN 34.2 pg (27.5-34.5); MEAN CORPUSCULAR HGB CONC 33.2 g/dL (33.2-36.2); MEAN PLATELET VOLUME 7.3 fL (7.4-10.4); MONOCYTES # (AUTO) 0.64 x10^3/uL (0.2-0.8); MONOCYTES % (AUTO) 8 % (2-9); NEUTROPHILS # (AUTO) 6.26 x10^3/uL (1.8-6.8); NEUTROPHILS % (AUTO) 73 % (42-75); PLATELET COUNT 232 x10^3/uL (130-400); RED BLOOD COUNT 3.66 x10^6/uL (4.38-5.82); RED CELL DISTRIBUTION WIDTH 14.2 % (9.4-14.8)
[2019-12-23 05:18] LABS: ANION GAP 6 mmol/L (5-15); CALCIUM 8.2 mg/dL (8.5-10.1); CHLORIDE 105 mmol/L (98-107)
[2019-12-23 05:19] LABS: CREATININE 0.67 mg/dL (0.7-1.3)
[2019-12-23 06:44] VITALS: BP 128/73
[2019-12-23] MEDS: NICOTINE 14MG/24 HR PATCH.TD24 TD SCH (08:11)
[2019-12-23] MEDS: TAMSULOSIN 0.4 MG CAP.ER.24H PO SCH ×4 (08:11→20:33)
[2019-12-23] MEDS: SENNA/DOCUSATE TABLET PO SCH (08:11)
[2019-12-23] MEDS: CLOTRIM/BETAMETH 1%/0.05% CRM TP SCH ×2 (08:11→20:33)
[2019-12-23] MEDS: GUAIFENESIN ER 600 MG TABLET PO SCH ×2 (08:11→20:33)
[2019-12-23] MEDS: FLUTICASONE/VILANTEROL 100-25MCG/INH INH SCH (08:12)
[2019-12-23] MEDS: CLOPIDOGREL 75 MG TABLET PO SCH (08:12)
[2019-12-23] MEDS: ALBUTEROL/IPRATROPIUM 2.5MG/0.5MG, 3 ML NPPB SCH ×3 (09:05→20:23)
[2019-12-23] MEDS: CYANOCOBALAMIN 1,000 MCG TABLET PO SCH (09:39)
[2019-12-23] MEDS ORDERED: CETIRIZINE 10 MG TABLET PO PRN (10:30)
[2019-12-23] MEDS ORDERED: FLUTICASONE NASAL SPRAY 16GM NAS PRN (10:30)
[2019-12-23] MEDS: SODIUM CHLORIDE NASAL SPRAY 45ML BOTTLE NAS SCH ×2 (11:18→20:32)
[2019-12-23] MEDS: ENOXAPARIN 40 MG/0.4 ML SQ SCH (12:27)
[2019-12-23 14:03] VITALS: BP 106/62
[2019-12-23 19:06] VITALS: BP 93/56
[2019-12-23] MEDS: ATORVASTATIN 20 MG TABLET PO SCH (20:33)
[2019-12-24 00:05] VITALS: BP 112/61
[2019-12-24 07:03] VITALS: BP 115/68
[2019-12-24] MEDS: ENOXAPARIN 40 MG/0.4 ML SQ SCH (07:48)
[2019-12-24] MEDS: SODIUM CHLORIDE NASAL SPRAY 45ML BOTTLE NAS SCH ×2 (08:50→19:57)
[2019-12-24] MEDS: TAMSULOSIN 0.4 MG CAP.ER.24H PO SCH ×2 (08:51→19:58)
[2019-12-24] MEDS: NICOTINE 14MG/24 HR PATCH.TD24 TD SCH (08:51)
[2019-12-24] MEDS: CLOPIDOGREL 75 MG TABLET PO SCH (08:51)
[2019-12-24] MEDS: FLUTICASONE/VILANTEROL 100-25MCG/INH INH SCH (08:51)
[2019-12-24] MEDS: CLOTRIM/BETAMETH 1%/0.05% CRM TP SCH ×2 (08:52→19:57)
[2019-12-24] MEDS: CYANOCOBALAMIN 1,000 MCG TABLET PO SCH (08:52)
[2019-12-24] MEDS: SENNA/DOCUSATE TABLET PO SCH (08:52)
[2019-12-24] MEDS: GUAIFENESIN ER 600 MG TABLET PO SCH ×2 (08:52→19:58)
[2019-12-24] MEDS: ALBUTEROL/IPRATROPIUM 2.5MG/0.5MG, 3 ML NPPB SCH ×3 (09:20→20:51)
[2019-12-24] MEDS: FLUTICASONE NASAL SPRAY 16GM NAS SCH (11:30)
[2019-12-24 13:25] VITALS: BP 94/56
[2019-12-24 18:33] VITALS: BP 90/49
[2019-12-24] MEDS: ATORVASTATIN 20 MG TABLET PO SCH (19:58)
[2019-12-25 02:26] VITALS: BP 114/65
[2019-12-25] MEDS: ALBUTEROL/IPRATROPIUM 2.5MG/0.5MG, 3 ML NPPB SCH ×2 (07:32→13:40)
[2019-12-25 07:53] VITALS: BP 93/58
[2019-12-25] MEDS: SENNA/DOCUSATE TABLET PO SCH (08:23)
[2019-12-25] MEDS: CYANOCOBALAMIN 1,000 MCG TABLET PO SCH (08:23)
[2019-12-25] MEDS: CLOPIDOGREL 75 MG TABLET PO SCH (08:23)
[2019-12-25] MEDS: TAMSULOSIN 0.4 MG CAP.ER.24H PO SCH (08:23)
[2019-12-25] MEDS: NICOTINE 14MG/24 HR PATCH.TD24 TD SCH (08:23)
[2019-12-25] MEDS: GUAIFENESIN ER 600 MG TABLET PO SCH (08:23)
[2019-12-25] MEDS: SODIUM CHLORIDE NASAL SPRAY 45ML BOTTLE NAS SCH (08:25)
[2019-12-25] MEDS: FLUTICASONE NASAL SPRAY 16GM NAS SCH (08:25)
[2019-12-25] MEDS: CLOTRIM/BETAMETH 1%/0.05% CRM TP SCH (08:25)
[2019-12-25] MEDS: FLUTICASONE/VILANTEROL 100-25MCG/INH INH SCH (08:25)
[2019-12-25] MEDS ORDERED: CETI10TA18 PO (10:00)
[2019-12-25] MEDS ORDERED: ALBU18HF INH (10:00)
[2019-12-25] MEDS ORDERED: CLOT15CR6 TP (10:00)
[2019-12-25] MEDS ORDERED: PANT20TA2 PO (10:00)
[2019-12-25] MEDS ORDERED: CYAN100072 PO (10:00)
[2019-12-25] MEDS ORDERED: FLUT1AER INH (10:00)
[2019-12-25] MEDS ORDERED: SODI44SP NAS (10:00)
[2019-12-25] MEDS ORDERED: PRED20TA PO (10:00)
[2019-12-25] MEDS ORDERED: GUAI600T31 PO (10:00)
[2019-12-25] MEDS ORDERED: FLUT16SP24 NAS (10:00)
[2019-12-25] MEDS: ENOXAPARIN 40 MG/0.4 ML SQ SCH (11:59)
[2019-12-25 13:09] VITALS: BP 120/72
== END 2019-12-25 17:47 | disposition home or self-care (01) | DRG 189 ==
LOC: ED 17:58 → EDIP 18:44 → 3E 21:00 → 3N 12-18 15:30
PROVIDERS: ADMIT Internal Medicine; ATTEND Hospitalist
DX: J96.21 Acute and chronic respiratory failure with hypoxia (principal); J44.1 Chronic obstructive pulmonary disease with (acute) exacerbation; E46 Unspecified protein-calorie malnutrition; Z68.1 Body mass index [BMI] 19.9 or less, adult; D72.810 Lymphocytopenia; D72.829 Elevated white blood cell count, unspecified; F17.210 Nicotine dependence, cigarettes, uncomplicated; I10 Essential (primary) hypertension; I25.10 Atherosclerotic heart disease of native coronary artery without angina pectoris; J30.9 Allergic rhinitis, unspecified; L21.9 Seborrheic dermatitis, unspecified; L25.9 Unspecified contact dermatitis, unspecified cause; N40.0 Benign prostatic hyperplasia without lower urinary tract symptoms; Z59.0 Homelessness; Z79.02 Long term (current) use of antithrombotics/antiplatelets; Z82.49 Family history of ischemic heart disease and other diseases of the circulatory system; Z86.73 Personal history of transient ischemic attack (TIA), and cerebral infarction without residual deficits; Z95.5 Presence of coronary angioplasty implant and graft; Z80.42 Family history of malignant neoplasm of prostate; Z79.899 Other long term (current) drug therapy; Z20.828 Contact with and (suspected) exposure to other viral communicable diseases
CPT/HCPCS: 36415; 70450; 71045; 80048; 80053; 82607; 83605; 83735; 83880; 84145; 84484; 85025; 85379; 87040; 87806; 93005; 94640; 99285; G0378; J0456; J1650; G0475; J2920; J7050; J7512

== ENCOUNTER 2020-05-12 19:03 | Inpatient (IN) | payer OTHER ==
[~2020-05-12] VITALS: Ht 170.2 cm; Wt 60.0 kg
[~2020-05-12 19:03] MED LIST changes: +CETI10TA18 PO; +CLOT15CR6 TP; +FLUT16SP24 NAS; +FLUT1AER INH; +LEVO500T47 PO; +PANT20TA2 PO; +PRED20TA PO; +SODI44SP NAS
[2020-05-12 19:54] LABS: ALBUMIN 3.5 g/dL (3.4-5.0); ANION GAP 5 mmol/L (5-15); CALCIUM 8.7 mg/dL (8.5-10.1); CHLORIDE 107 mmol/L (98-107)
[2020-05-12 20:00] LABS: ALANINE AMINOTRANSFERASE 13 U/L (12-78); ALKALINE PHOSPHATASE 54 U/L (45-117); BILIRUBIN,TOTAL 0.3 mg/dL (0.2-1.0); CREATININE 0.75 mg/dL (0.7-1.3); TOTAL PROTEIN 6.7 g/dL (6.4-8.2); TROPONIN I < 0.015 ng/mL (0.000-0.045)
[2020-05-12 20:05] LABS: MEAN CORPUSCULAR HEMOGLOBIN 33.3 pg (27.5-34.5); MEAN CORPUSCULAR HGB CONC 33.5 g/dL (33.2-36.2); MEAN CORPUSCULAR VOLUME 99.4 fL (81-97); MEAN PLATELET VOLUME 7.6 fL (7.4-10.4); PLATELET COUNT 186 x10^3/uL (130-400); RED BLOOD COUNT 3.93 x10^6/uL (4.38-5.82); RED CELL DISTRIBUTION WIDTH 14.9 % (9.4-14.8)
[2020-05-12 20:07] LABS: BASOPHILS # (AUTO) 0.03 x10^3/uL (0-0.1); BASOPHILS % (AUTO) 0 % (0-1); EOSINOPHILS % (AUTO) 4 % (1-7); LYMPHOCYTES # (AUTO) 1.95 x10^3/uL (1-3.4); LYMPHOCYTES % (AUTO) 19 % (22-44); MONOCYTES % (AUTO) 7 % (2-9); NEUTROPHILS # (AUTO) 7.09 x10^3/uL (1.8-6.8); NEUTROPHILS % (AUTO) 70 % (42-75)
[2020-05-12 20:09] LABS: MD SCAN
[2020-05-12] MEDS ORDERED: ALBUTEROL/IPRATROPIUM 2.5MG/0.5MG, 3 ML ONE (20:42)
[2020-05-12] MEDS ORDERED: methylPREDNISolone SOD SUCC 125 MG/2 ML ONE (20:42)
[2020-05-12] MEDS ORDERED: methylPREDNISolone SOD SUCC 125 MG/2 ML IV ONE (21:00)
[2020-05-12] MEDS ORDERED: ALBUTEROL/IPRATROPIUM 2.5MG/0.5MG, 3 ML NPPB ONE (21:00)
--- NOTE | 2020-05-12 21:00 | NUR ---
PT AMBULATED WITH ASSISTANCE AND WAS WINDED WITH EXERSION. PT O2 SATS DROPPED TO 88% WHILE ON RA AND WALKING
--- NOTE | 2020-05-12 21:21 | NUR ---
PT RESTING IN BED, PT ON MONITOR WITH NO WANTS OR NEEDS AT THIS TIME. [facility] WILL CONTINUE TO MONITOR PT CONDITION AND VITALS
--- NOTE | 2020-05-12 21:32 | NUR ---
Susu berrios at [facility] refused patient at this time.
[2020-05-12 22:39] VITALS: BP 148/75
[2020-05-13] MEDS ORDERED: LIDODERM 5% PATCH TD PRN (00:30)
[2020-05-13] MEDS ORDERED: ONDANSETRON 2MG/ML, 2ML IVPush PRN (00:30)
[2020-05-13] MEDS ORDERED: DOCUSATE 100 MG CAPSULE PO PRN (00:30)
[2020-05-13] MEDS ORDERED: MELATONIN 5 MG TABLET PO PRN (00:30)
[2020-05-13 00:55] VITALS: BP 100/62
[2020-05-13 05:22] LABS: BASOPHILS # (AUTO) 0.01 x10^3/uL (0-0.1); BASOPHILS % (AUTO) 0 % (0-1); EOSINOPHILS # (AUTO) 0.01 x10^3/uL (0-0.4); EOSINOPHILS % (AUTO) 0 % (1-7); LYMPHOCYTES # (AUTO) 0.69 x10^3/uL (1-3.4); LYMPHOCYTES % (AUTO) 12 % (22-44); MD NO; MEAN CORPUSCULAR HEMOGLOBIN 33.1 pg (27.5-34.5); MEAN CORPUSCULAR HGB CONC 33.2 g/dL (33.2-36.2); MEAN CORPUSCULAR VOLUME 99.7 fL (81-97); MEAN PLATELET VOLUME 7.1 fL (7.4-10.4); MONOCYTES # (AUTO) 0.03 x10^3/uL (0.2-0.8); MONOCYTES % (AUTO) 1 % (2-9); NEUTROPHILS # (AUTO) 4.93 x10^3/uL (1.8-6.8); NEUTROPHILS % (AUTO) 87 % (42-75); PLATELET COUNT 226 x10^3/uL (130-400); RED BLOOD COUNT 4.24 x10^6/uL (4.38-5.82); RED CELL DISTRIBUTION WIDTH 15.1 % (9.4-14.8)
[2020-05-13 05:32] LABS: ANION GAP 6 mmol/L (5-15); CALCIUM 8.9 mg/dL (8.5-10.1); CHLORIDE 105 mmol/L (98-107)
[2020-05-13 05:35] LABS: CREATININE 0.64 mg/dL (0.7-1.3)
[2020-05-13] MEDS: ALBUTEROL-IPRATROPIUM MDI INH INH SCH ×4 (05:40→20:05)
[2020-05-13 06:25] VITALS: BP 110/68
[2020-05-13] MEDS ORDERED: DIPHENHYDRAMINE/ZINC CRM 2%, 30GM TP PRN (10:00)
[2020-05-13] MEDS: FLUTICASONE/VILANTEROL 200-25MCG/INH INH SCH (10:50)
[2020-05-13] MEDS: TRIAMCINOLONE CRM 0.1%, 15GM TP SCH ×2 (10:51→20:05)
[2020-05-13] MEDS: methylPREDNISolone SOD SUCC 40 MG/ML IV SCH ×2 (10:51→18:40)
[2020-05-13 13:01] VITALS: BP 132/66
[2020-05-13 18:48] VITALS: BP 119/64
[2020-05-14 00:19] VITALS: BP 130/70
[2020-05-14] MEDS: methylPREDNISolone SOD SUCC 40 MG/ML IV SCH ×3 (02:13→18:12)
[2020-05-14] MEDS: ACETAMINOPHEN 325 MG TABLET PO PRN (05:44)
[2020-05-14 06:49] VITALS: BP 141/74
[2020-05-14] MEDS: TRIAMCINOLONE CRM 0.1%, 15GM TP SCH ×2 (07:31→21:00)
[2020-05-14] MEDS: ALBUTEROL-IPRATROPIUM MDI INH INH SCH ×4 (07:31→20:08)
[2020-05-14] MEDS: FLUTICASONE/VILANTEROL 200-25MCG/INH INH SCH (07:31)
[2020-05-14] MEDS: GUAIFENESIN ER 600 MG TABLET PO SCH ×2 (10:18→20:08)
[2020-05-14 12:55] VITALS: BP 155/79
[2020-05-14 20:30] VITALS: BP 134/72
[2020-05-15 01:54] VITALS: BP 140/72
[2020-05-15] MEDS: methylPREDNISolone SOD SUCC 40 MG/ML IV SCH ×2 (02:19→08:34)
[2020-05-15 07:04] VITALS: BP 144/81
[2020-05-15] MEDS: ALBUTEROL-IPRATROPIUM MDI INH INH SCH ×4 (08:32→19:28)
[2020-05-15] MEDS: FLUTICASONE/VILANTEROL 200-25MCG/INH INH SCH (08:33)
[2020-05-15] MEDS: GUAIFENESIN ER 600 MG TABLET PO SCH ×2 (08:33→19:28)
[2020-05-15] MEDS: TRIAMCINOLONE CRM 0.1%, 15GM TP SCH ×2 (08:34→19:28)
[2020-05-15] MEDS: ACETAMINOPHEN 325 MG TABLET PO PRN ×2 (12:44→19:28)
[2020-05-15 13:37] VITALS: BP 148/100
[2020-05-15 18:59] VITALS: BP 174/86
[2020-05-15] MEDS: hydrALAzine 20 MG/ML, 1ML IVPush PRN (19:29)
[2020-05-15 21:54] VITALS: BP 148/78
[2020-05-16] VITALS: BP 183/86
[2020-05-16] MEDS: hydrALAzine 20 MG/ML, 1ML IVPush PRN (00:07)
[2020-05-16 02:39] VITALS: BP 134/74
[2020-05-16] MEDS: ACETAMINOPHEN 325 MG TABLET PO PRN (02:39)
[2020-05-16] MEDS ORDERED: TAMS-11 PO (07:22)
[2020-05-16] MEDS ORDERED: ALBU18HF INH (07:22)
[2020-05-16] MEDS ORDERED: ATOR20TA37 PO (07:22)
[2020-05-16] MEDS ORDERED: PANT20TA2 PO (07:22)
[2020-05-16] MEDS ORDERED: PRED20TA PO (07:22)
[2020-05-16] MEDS ORDERED: FLUT1AER INH (07:22)
[2020-05-16] MEDS: ALBUTEROL-IPRATROPIUM MDI INH INH SCH ×2 (08:09→11:26)
[2020-05-16] MEDS: GUAIFENESIN ER 600 MG TABLET PO SCH (08:11)
[2020-05-16] MEDS: FLUTICASONE/VILANTEROL 200-25MCG/INH INH SCH (08:12)
[2020-05-16] MEDS: TRIAMCINOLONE CRM 0.1%, 15GM TP SCH (08:15)
[2020-05-16 08:22] VITALS: BP 143/76
[2020-05-16] MEDS ORDERED: TAMSULOSIN 0.4 MG CAP.ER.24H PO SCH (09:00)
[2020-05-16 13:15] VITALS: BP 102/60
== END 2020-05-16 13:49 | disposition home or self-care (01) | DRG 189 ==
LOC: ED 20:01 → EDIP 21:05 → 3N 22:28 → DCLOUNGE 05-16 13:39
PROVIDERS: ADMIT Family Medicine; ATTEND Hospitalist
DX: J96.01 Acute respiratory failure with hypoxia (principal); J44.1 Chronic obstructive pulmonary disease with (acute) exacerbation; F17.203 Nicotine dependence unspecified, with withdrawal; L29.9 Pruritus, unspecified; D53.9 Nutritional anemia, unspecified; E78.5 Hyperlipidemia, unspecified; I10 Essential (primary) hypertension; I25.10 Atherosclerotic heart disease of native coronary artery without angina pectoris; N40.0 Benign prostatic hyperplasia without lower urinary tract symptoms; K21.9 Gastro-esophageal reflux disease without esophagitis; Z59.0 Homelessness; Z82.49 Family history of ischemic heart disease and other diseases of the circulatory system; Z86.73 Personal history of transient ischemic attack (TIA), and cerebral infarction without residual deficits; Z87.11 Personal history of peptic ulcer disease; Z95.5 Presence of coronary angioplasty implant and graft; Z88.0 Allergy status to penicillin
CPT/HCPCS: 36415; 71045; 80048; 80053; 83880; 84484; 85025; 93005; G0378; J0360; J2920; J2930; J7512

== ENCOUNTER 2020-09-11 21:14 | Emergency (ER) | payer OTHER, MEDICAID ==
[~2020-09-11] VITALS: Ht 170.2 cm; Wt 55.5 kg
[~2020-09-11 21:14] MED LIST changes: +ATOR20TA37 PO
[2020-09-11] MEDS ORDERED: ALBUTEROL/IPRATROPIUM 2.5MG/0.5MG, 3 ML ONE (22:11)
[2020-09-11] MEDS ORDERED: methylPREDNISolone SOD SUCC 125 MG/2 ML ONE (22:11)
[2020-09-11] MEDS ORDERED: ALBUTEROL/IPRATROPIUM 2.5MG/0.5MG, 3 ML NPPB ONE (22:30)
[2020-09-11] MEDS ORDERED: SODIUM CHLORIDE 0.9% 1,000ML IVBOLUS ONE (22:30)
[2020-09-11] MEDS ORDERED: SODIUM CHLORIDE FLUSH 10ML SYR IVF ONE (22:30)
[2020-09-11] MEDS ORDERED: methylPREDNISolone SOD SUCC 125 MG/2 ML IV ONE (22:30)
[2020-09-11 22:43] LABS: BASOPHILS % (AUTO) 1 % (0-1); EOSINOPHILS % (AUTO) 3 % (1-7); LYMPHOCYTES % (AUTO) 36 % (22-44); MEAN CORPUSCULAR HEMOGLOBIN 34.5 pg (27.5-34.5); MEAN CORPUSCULAR HGB CONC 34.3 g/dL (33.2-36.2); MONOCYTES % (AUTO) 8 % (2-9); NEUTROPHILS % (AUTO) 52 % (42-75); PLATELET COUNT 204 x10^3/uL (130-400); RED BLOOD COUNT 3.97 x10^6/uL (4.38-5.82); RED CELL DISTRIBUTION WIDTH 14.2 % (9.4-14.8)
[2020-09-11 22:48] LABS: ALANINE AMINOTRANSFERASE 15 U/L (12-78); CHLORIDE 107 mmol/L (98-107); CREATININE 0.84 mg/dL (0.7-1.3)
[2020-09-11 22:49] LABS: MD NO
[2020-09-11 22:53] LABS: ALKALINE PHOSPHATASE 63 U/L (45-117); BILIRUBIN,TOTAL 0.3 mg/dL (0.2-1.0); TOTAL PROTEIN 7.4 g/dL (6.4-8.2); TROPONIN I < 0.015 ng/mL (0.000-0.045)
[2020-09-11 23:00] LABS: ANION GAP 2 mmol/L (5-15)
--- NOTE | 2020-09-11 23:06 | NUR ---
PT RESTING IN [facility], CXR, LABS AND BLOOD CULTURES DRAWN, PIV SUCCESSFUL AFTER 3 ATTEMPTS. MEDICATED PER EMAR, RESTING COMFORTABLY WITH BREATHING TX. NO OTHER NEEDS AT THIS TIME.
[2020-09-12 00:12] VITALS: BP 110/66
== END 2020-09-12 00:32 | disposition home or self-care (01) ==
LOC: ED 22:39
DX: J44.1 Chronic obstructive pulmonary disease with (acute) exacerbation (principal); R50.9 Fever, unspecified; R07.89 Other chest pain; I10 Essential (primary) hypertension; I25.10 Atherosclerotic heart disease of native coronary artery without angina pectoris; I49.3 Ventricular premature depolarization; R06.02 Shortness of breath; R06.00 Dyspnea, unspecified; F17.210 Nicotine dependence, cigarettes, uncomplicated; Z88.0 Allergy status to penicillin; Z88.9 Allergy status to unspecified drugs, medicaments and biological substances
CPT/HCPCS: 36415; 71045; 80053; 83880; 84484; 85025; 87040; 93005; 94640; 96361; 96374; 99283; 99406; J2930; J7030

== ENCOUNTER 2021-04-21 23:11 | Emergency (ER) | payer MEDICARE, MEDICAID ==
[~2021-04-21] VITALS: Ht 170.2 cm; Wt 80.0 kg
[~2021-04-21 23:11] MED LIST changes: +AZIT250T PO; +BUDE10.22 INH; +CEFD300C37 PO; +HYDR-826 PO; +IBUP-1902 PO; +OMEP-110 PO; +SENN1TAB68 PO; +SUCR1ORA5 PO
[2021-04-22] MEDS ORDERED: DIPHENHYDRAMINE 50 MG/ML, 1ML IVPush ONE
[2021-04-22] MEDS ORDERED: SODIUM CHLORIDE FLUSH 10ML SYR IVF ONE
[2021-04-22] MEDS ORDERED: ALBUTEROL/IPRATROPIUM 2.5MG/0.5MG, 3 ML NPPB ONE
[2021-04-22] MEDS ORDERED: methylPREDNISolone SOD SUCC 125 MG/2 ML IV ONE
[2021-04-22] MEDS ORDERED: ALBUTEROL/IPRATROPIUM 2.5MG/0.5MG, 3 ML ONE (00:14)
[2021-04-22] MEDS ORDERED: methylPREDNISolone SOD SUCC 125 MG/2 ML ONE (00:14)
[2021-04-22] MEDS ORDERED: DIPHENHYDRAMINE 50 MG/ML, 1ML ONE (00:14)
[2021-04-22 00:21] LABS: BASOPHILS % (AUTO) 1 % (0-1); EOSINOPHILS % (AUTO) 2 % (1-7); LYMPHOCYTES % (AUTO) 41 % (22-44); MEAN CORPUSCULAR HGB CONC 34.2 g/dL (33.2-36.2); MEAN PLATELET VOLUME 6.2 fL (7.4-10.4); MONOCYTES % (AUTO) 8 % (2-9); NEUTROPHILS % (AUTO) 48 % (42-75); PLATELET COUNT 237 x10^3/uL (130-400); RED BLOOD COUNT 4.02 x10^6/uL (4.38-5.82); RED CELL DISTRIBUTION WIDTH 13.7 % (9.4-14.8)
[2021-04-22 00:29] LABS: ALANINE AMINOTRANSFERASE 16 U/L (12-78); ALBUMIN 3.4 g/dL (3.4-5.0); ANION GAP 4 mmol/L (5-15); CALCIUM 9.1 mg/dL (8.5-10.1); CHLORIDE 107 mmol/L (98-107); CREATININE 0.77 mg/dL (0.7-1.3)
[2021-04-22 00:33] LABS: ALKALINE PHOSPHATASE 64 U/L (45-117); BILIRUBIN,TOTAL 0.2 mg/dL (0.2-1.0); TOTAL PROTEIN 7.3 g/dL (6.4-8.2); TROPONIN I < 0.015 ng/mL (0.000-0.045)
--- NOTE | 2021-04-22 01:20 | NUR ---
CARE ASSUMED AT THIS TIME. PT SLEEPING. NC PLACED ON PT. PT O2 94%. WILL CONTINUE TO MONITOR
[2021-04-22] MEDS ORDERED: AZITHROMYCIN 500 MG in SODIUM CHLORIDE 0.9% 250 ML IV ONE (02:00)
[2021-04-22] MEDS ORDERED: ACETAMINOPHEN 325 MG TABLET PO PRN (03:00)
[2021-04-22] MEDS ORDERED: ENOXAPARIN 40 MG/0.4 ML SQ SCH (03:00)
[2021-04-22 04:38] LABS: BASOPHILS % (AUTO) 0 % (0-1); EOSINOPHILS % (AUTO) 0 % (1-7); LYMPHOCYTES % (AUTO) 7 % (22-44); MEAN CORPUSCULAR HEMOGLOBIN 34.2 pg (27.5-34.5); MEAN CORPUSCULAR HGB CONC 34.5 g/dL (33.2-36.2); MEAN PLATELET VOLUME 6.3 fL (7.4-10.4); MONOCYTES % (AUTO) 1 % (2-9); NEUTROPHILS % (AUTO) 92 % (42-75); PLATELET COUNT 222 x10^3/uL (130-400); RED BLOOD COUNT 3.83 x10^6/uL (4.38-5.82); RED CELL DISTRIBUTION WIDTH 13.3 % (9.4-14.8)
--- NOTE | 2021-04-22 04:41 | NUR ---
PT SLEEPING AND AWAITING ADMISSION BED. WILL CONTINUE TO MONITOR
[2021-04-22 04:47] LABS: ANION GAP 4 mmol/L (5-15); CALCIUM 8.8 mg/dL (8.5-10.1); CHLORIDE 108 mmol/L (98-107); CREATININE 0.66 mg/dL (0.7-1.3)
--- NOTE | 2021-04-22 05:01 | NUR ---
HOSPITALIST AT BEDSIDE.
--- NOTE | 2021-04-22 05:11 | NUR ---
ASSISTED PT WITH URINAL.
[2021-04-22] MEDS ORDERED: ALBUTEROL-IPRATROPIUM MDI INH INH SCH (06:00)
--- NOTE | 2021-04-22 06:36 | NUR ---
PT KANWAL. [place]. PT MEDTELE HOLD IN ER. WILL CONTINUE TO MONITOR. VSSS
[2021-04-22] MEDS ORDERED: ALBUTEROL/IPRATROPIUM 2.5MG/0.5MG, 3 ML HHN SCH (07:00)
--- NOTE | 2021-04-22 07:02 | NUR ---
CARE TRANSFERED. REPORT GIVEN TO DORYS LIZ
[2021-04-22] MEDS ORDERED: SODIUM CHLORIDE 0.9% 1,000 ML IV SCH (07:30)
[2021-04-22] MEDS ORDERED: AZITHROMYCIN 500 MG TABLET PO SCH (09:00)
[2021-04-22] MEDS ORDERED: PERMETHRIN CRM 5%, 60GM TP STA (09:38)
--- NOTE | 2021-04-22 10:04 | NUR ---
LATE ENTRY FOR 929, PT OOB TO UNDRESS AND PUT ON GOWN, SCABIES LIKE SCRATCHES NOTED TO BACK. DR MCKEON INFORMED +SCABIES AND ORDERS REC'D. PT PLACED ON HOSPITAL BED. CARDIAC DIET ORDERED. CALL LIGHT W/I REACH. PT RA SAT AFTER ACTIVITY 90%, 02 2L NC PLACED.
--- NOTE | 2021-04-22 10:06 | NUR ---
SBAR RPT TO DORYS STEVE
[2021-04-22] MEDS ORDERED: Albuterol-Ipratropium Mdi INH (10:10)
[2021-04-22 10:21] VITALS: BP 110/72
[2021-04-22] MEDS ORDERED: IVER3TAB2 PEG ×2 (10:49)
--- NOTE | 2021-04-22 12:11 | NUR ---
PT DC WITH INHALER AND EDUCATION
[2021-04-27] MEDS ORDERED: PHENYLEPHRINE 10 MG/ML ONE (18:46)
[2021-04-27] MEDS ORDERED: EPINEPHRINE 1 MG/ML, 1ML ONE (18:46)
== END 2021-04-22 12:23 | disposition home or self-care (01) ==
LOC: ED 23:44 → UNDOADMIN 04-22 02:54 → EDIP 04-22 02:54
DX: J96.01 Acute respiratory failure with hypoxia (principal); Z20.822 Contact with and (suspected) exposure to COVID-19; J44.1 Chronic obstructive pulmonary disease with (acute) exacerbation; Z98.61 Coronary angioplasty status; I10 Essential (primary) hypertension; F17.200 Nicotine dependence, unspecified, uncomplicated; R94.31 Abnormal electrocardiogram [ECG] [EKG]
CPT/HCPCS: 36415; 71045; 80048; 80053; 83735; 83880; 84484; 85025; 87040; 93005; 96374; 96375; 99285; J0456; J1200; J2930; J7050; U0003; U0005

== ENCOUNTER 2021-05-05 15:06 | Inpatient (IN) | payer MEDICARE, MEDICAID ==
[~2021-05-05] VITALS: Ht 170.2 cm; Wt 57.4 kg
[~2021-05-05 15:06] MED LIST changes: +Albuterol-Ipratropium Mdi INH; +IVER3TAB2 PEG
--- NOTE | 2021-05-05 15:06 | NUR ---
Pt [facility] at [facility]55 to room. Report received and care assumed. Pt assisted into a gown and placed on full bedside monitor. Pt with obvious SOB with expiratory wheezes throughout and significantly diminished bases. Pt reports coughing up green, thich sputum over the last few days. O2 at 4L/min increased to 6L/min with good effect noted.
--- NOTE | 2021-05-05 15:25 | NUR ---
at bedside for exam.
[2021-05-05] MEDS ORDERED: SODIUM CHLORIDE FLUSH 10ML SYR IVF ONE (15:30)
--- NOTE | 2021-05-05 16:00 | NUR ---
Pt medicated with Predinsone as ordered. audiometric technician at bedside for draw. Needs second set of BC drawn with IV start.
[2021-05-05 16:08] LABS: BASOPHILS % (AUTO) 0 % (0-1); EOSINOPHILS % (AUTO) 1 % (1-7); LYMPHOCYTES % (AUTO) 14 % (22-44); MEAN CORPUSCULAR HEMOGLOBIN 34.1 pg (27.5-34.5); MEAN CORPUSCULAR HGB CONC 34.2 g/dL (33.2-36.2); MEAN PLATELET VOLUME 6.2 fL (7.4-10.4); MONOCYTES % (AUTO) 6 % (2-9); NEUTROPHILS % (AUTO) 79 % (42-75); PLATELET COUNT 278 x10^3/uL (130-400); RED BLOOD COUNT 3.47 x10^6/uL (4.38-5.82); RED CELL DISTRIBUTION WIDTH 13.9 % (9.4-14.8)
[2021-05-05 16:22] LABS: ALANINE AMINOTRANSFERASE 12 U/L (12-78); ALBUMIN 3.3 g/dL (3.4-5.0); ANION GAP 2 mmol/L (5-15); CALCIUM 8.5 mg/dL (8.5-10.1); CHLORIDE 109 mmol/L (98-107); CREATININE 0.54 mg/dL (0.7-1.3)
[2021-05-05 16:27] LABS: ALKALINE PHOSPHATASE 57 U/L (45-117); BILIRUBIN,TOTAL 0.2 mg/dL (0.2-1.0); TOTAL PROTEIN 6.7 g/dL (6.4-8.2); TROPONIN I < 0.015 ng/mL (0.000-0.045)
[2021-05-05] MEDS ORDERED: IPRATROPIUM 0.5 MG/2.5 ML INHA NPPB ONE (16:30)
[2021-05-05] MEDS ORDERED: ALBUTEROL 0.5%, 20ML NPPB SCH (16:30)
[2021-05-05] MEDS ORDERED: IPRATROPIUM 0.5 MG/2.5 ML INHA ONE (16:50)
[2021-05-05] MEDS ORDERED: ALBUTEROL 0.5%, 20ML ONE (16:50)
--- NOTE | 2021-05-05 17:00 | NUR ---
Pt on hour-long NPPB tx per RT. Urinal in reach for pt.
--- NOTE | 2021-05-05 18:29 | NUR ---
Report given to DORYS Glynn via phone and pt readied to go up.
--- NOTE | 2021-05-05 18:30 | NUR ---
Pt swabbed for covid prior to leaving dept. and urinal emptied of 125mL yellow uop.
[2021-05-05] MEDS ORDERED: ONDANSETRON ODT 4 MG PO PRN (19:00)
[2021-05-05] MEDS ORDERED: methylPREDNISolone SOD SUCC 125 MG/2 ML IVPush ONE (19:00)
[2021-05-05] MEDS ORDERED: POLYETHYLENE GLYCOL 17 GM PACKET PO PRN (19:00)
[2021-05-05] MEDS ORDERED: BISACODYL 10 MG SUPP PR PRN (19:00)
[2021-05-05 19:57] VITALS: BP 122/64
[2021-05-05] MEDS: HEPARIN 5,000 UNITS/ML, 1ML SQ SCH (21:08)
[2021-05-05] MEDS: SODIUM CHLORIDE FLUSH 10ML SYR IVF SCH (21:08)
[2021-05-05] MEDS: ATORVASTATIN 20 MG TABLET PO SCH (21:08)
[2021-05-06 00:11] VITALS: BP 107/65
[2021-05-06] MEDS: HEPARIN 5,000 UNITS/ML, 1ML SQ SCH ×3 (01:49→18:41)
[2021-05-06] MEDS: methylPREDNISolone SOD SUCC 125 MG/2 ML IVPush SCH ×4 (01:49→21:06)
[2021-05-06] MEDS: OMEPRAZOLE 20 MG CAPSULE.DR PO SCH ×2 (06:19→15:26)
[2021-05-06] MEDS: ALBUTEROL-IPRATROPIUM MDI INH INH SCH ×4 (06:20→21:05)
[2021-05-06 07:08] LABS: BASOPHILS % (AUTO) 0 % (0-1); EOSINOPHILS % (AUTO) 0 % (1-7); LYMPHOCYTES % (AUTO) 7 % (22-44); MEAN CORPUSCULAR HEMOGLOBIN 33.6 pg (27.5-34.5); MEAN CORPUSCULAR HGB CONC 33.5 g/dL (33.2-36.2); MEAN PLATELET VOLUME 6.5 fL (7.4-10.4); MONOCYTES % (AUTO) 1 % (2-9); NEUTROPHILS % (AUTO) 92 % (42-75); PLATELET COUNT 277 x10^3/uL (130-400); RED BLOOD COUNT 3.62 x10^6/uL (4.38-5.82); RED CELL DISTRIBUTION WIDTH 14.1 % (9.4-14.8)
[2021-05-06 07:10] LABS: ANION GAP 3 mmol/L (5-15); CALCIUM 9.3 mg/dL (8.5-10.1); CHLORIDE 107 mmol/L (98-107); CREATININE 0.56 mg/dL (0.7-1.3)
[2021-05-06 08:52] VITALS: BP 115/64
[2021-05-06] MEDS: FLUTICASONE/VILANTEROL 200-25MCG/INH INH SCH (09:00)
[2021-05-06] MEDS: SENNA/DOCUSATE TABLET PO SCH (09:59)
[2021-05-06] MEDS: SODIUM CHLORIDE FLUSH 10ML SYR IVF SCH ×2 (10:00→21:06)
[2021-05-06] MEDS: TAMSULOSIN 0.4 MG CAP.ER.24H PO SCH (10:00)
[2021-05-06 13:23] VITALS: BP 132/71
[2021-05-06] MEDS: CEFTRIAXONE 2 GM in DEXTROSE 5% 50 ML IVPB SCH (16:54)
[2021-05-06] MEDS: AZITHROMYCIN 500 MG in SODIUM CHLORIDE 0.9% 250 ML IV SCH (16:55)
[2021-05-06 18:59] VITALS: BP 130/80
[2021-05-06] MEDS: ACETAMINOPHEN 325 MG TABLET PO PRN (21:06)
[2021-05-06] MEDS: ATORVASTATIN 20 MG TABLET PO SCH (21:06)
[2021-05-07 00:24] VITALS: BP 138/83
[2021-05-07] MEDS: methylPREDNISolone SOD SUCC 125 MG/2 ML IVPush SCH ×4 (02:40→20:14)
[2021-05-07] MEDS: HEPARIN 5,000 UNITS/ML, 1ML SQ SCH ×3 (02:40→20:13)
[2021-05-07] MEDS: OMEPRAZOLE 20 MG CAPSULE.DR PO SCH ×2 (06:13→15:26)
[2021-05-07] MEDS: ALBUTEROL-IPRATROPIUM MDI INH INH SCH ×4 (08:02→20:13)
[2021-05-07] MEDS: SODIUM CHLORIDE FLUSH 10ML SYR IVF SCH ×2 (08:03→20:18)
[2021-05-07] MEDS: TAMSULOSIN 0.4 MG CAP.ER.24H PO SCH (08:03)
[2021-05-07] MEDS: SENNA/DOCUSATE TABLET PO SCH (08:03)
[2021-05-07] MEDS ORDERED: OMNIPAQUE 350 MG/ML, 75ML BOTTLE ONE (09:35)
[2021-05-07] MEDS: FLUTICASONE/VILANTEROL 200-25MCG/INH INH SCH (10:11)
[2021-05-07 10:12] VITALS: BP 147/74
[2021-05-07 12:12] VITALS: BP 124/77
[2021-05-07] MEDS: CEFTRIAXONE 2 GM in DEXTROSE 5% 50 ML IVPB SCH (16:20)
[2021-05-07] MEDS: AZITHROMYCIN 500 MG in SODIUM CHLORIDE 0.9% 250 ML IV SCH (16:51)
[2021-05-07] MEDS: ACETAMINOPHEN 325 MG TABLET PO PRN ×2 (16:55→20:14)
[2021-05-07] MEDS: GUAIFENESIN/DM 200-20MG, 10ML UDC PO PRN (16:55)
[2021-05-07 20:12] VITALS: BP 140/79
[2021-05-07] MEDS: ATORVASTATIN 20 MG TABLET PO SCH (20:14)
[2021-05-08 00:34] VITALS: BP 123/81
[2021-05-08] MEDS: methylPREDNISolone SOD SUCC 125 MG/2 ML IVPush SCH ×4 (02:25→20:21)
[2021-05-08] MEDS: HEPARIN 5,000 UNITS/ML, 1ML SQ SCH ×3 (05:17→20:22)
[2021-05-08] MEDS: OMEPRAZOLE 20 MG CAPSULE.DR PO SCH ×2 (05:17→17:22)
[2021-05-08 07:47] LABS: BASOPHILS % (AUTO) 0 % (0-1); EOSINOPHILS % (AUTO) 0 % (1-7); LYMPHOCYTES % (AUTO) 7 % (22-44); MEAN CORPUSCULAR HEMOGLOBIN 33.8 pg (27.5-34.5); MEAN CORPUSCULAR HGB CONC 33.9 g/dL (33.2-36.2); MEAN PLATELET VOLUME 6.7 fL (7.4-10.4); MONOCYTES % (AUTO) 2 % (2-9); NEUTROPHILS % (AUTO) 91 % (42-75); PLATELET COUNT 258 x10^3/uL (130-400); RED BLOOD COUNT 3.58 x10^6/uL (4.38-5.82); RED CELL DISTRIBUTION WIDTH 13.3 % (9.4-14.8)
[2021-05-08 07:51] VITALS: BP 137/79
[2021-05-08 07:53] LABS: ANION GAP 3 mmol/L (5-15); CALCIUM 8.6 mg/dL (8.5-10.1); CHLORIDE 103 mmol/L (98-107)
[2021-05-08 07:54] LABS: CREATININE 0.48 mg/dL (0.7-1.3)
[2021-05-08] MEDS: FLUTICASONE/VILANTEROL 200-25MCG/INH INH SCH (08:44)
[2021-05-08] MEDS: ALBUTEROL-IPRATROPIUM MDI INH INH SCH ×4 (08:44→20:00)
[2021-05-08] MEDS: SENNA/DOCUSATE TABLET PO SCH (08:45)
[2021-05-08] MEDS: SODIUM CHLORIDE FLUSH 10ML SYR IVF SCH ×2 (08:45→20:22)
[2021-05-08] MEDS: TAMSULOSIN 0.4 MG CAP.ER.24H PO SCH (08:45)
[2021-05-08 14:06] VITALS: BP 110/65
[2021-05-08] MEDS: CEFTRIAXONE 2 GM in DEXTROSE 5% 50 ML IVPB SCH (17:22)
[2021-05-08] MEDS: AZITHROMYCIN 500 MG in SODIUM CHLORIDE 0.9% 250 ML IV SCH (18:10)
[2021-05-08 20:07] VITALS: BP 141/85
[2021-05-08] MEDS: ATORVASTATIN 20 MG TABLET PO SCH (20:22)
[2021-05-08] MEDS: ACETAMINOPHEN 325 MG TABLET PO PRN (20:30)
[2021-05-09] MEDS: methylPREDNISolone SOD SUCC 125 MG/2 ML IVPush SCH ×4 (02:19→20:26)
[2021-05-09 02:22] VITALS: BP 147/83
[2021-05-09] MEDS: HEPARIN 5,000 UNITS/ML, 1ML SQ SCH ×3 (05:30→20:26)
[2021-05-09] MEDS: OMEPRAZOLE 20 MG CAPSULE.DR PO SCH ×2 (05:30→16:52)
[2021-05-09 07:07] VITALS: BP 154/76
[2021-05-09] MEDS: TAMSULOSIN 0.4 MG CAP.ER.24H PO SCH (08:48)
[2021-05-09] MEDS: SODIUM CHLORIDE FLUSH 10ML SYR IVF SCH ×2 (08:48→20:56)
[2021-05-09] MEDS: ALBUTEROL-IPRATROPIUM MDI INH INH SCH ×4 (08:48→21:12)
[2021-05-09] MEDS: FLUTICASONE/VILANTEROL 200-25MCG/INH INH SCH (08:48)
[2021-05-09] MEDS: SENNA/DOCUSATE TABLET PO SCH (08:48)
[2021-05-09] MEDS: GUAIFENESIN/DM 200-20MG, 10ML UDC PO PRN (09:06)
[2021-05-09] MEDS ORDERED: OMEP-110 PO (11:21)
[2021-05-09] MEDS ORDERED: SENN-211 PO (11:21)
[2021-05-09] MEDS ORDERED: PRED5TAB PO ×2 (11:21)
[2021-05-09] MEDS ORDERED: ATOR20TA37 PO (11:21)
[2021-05-09] MEDS ORDERED: TAMS-11 PO (11:21)
[2021-05-09] MEDS ORDERED: BUDE10.22 INH ×2 (11:21)
[2021-05-09] MEDS ORDERED: FLUT16SP24 NAS (11:21)
[2021-05-09] MEDS ORDERED: IPRA4AER INH (11:21)
[2021-05-09] MEDS ORDERED: AZIT500T PO ×2 (11:21)
[2021-05-09] MEDS ORDERED: CEFD300C37 PO ×2 (11:21)
[2021-05-09] MEDS ORDERED: METO25TA35 PO ×2 (11:28)
[2021-05-09] MEDS ORDERED: LISI-167 PO ×2 (11:28)
[2021-05-09] MEDS ORDERED: CLOP75TA52 PO ×2 (11:28)
[2021-05-09] MEDS: ACETAMINOPHEN 325 MG TABLET PO PRN (12:32)
[2021-05-09 12:38] VITALS: BP 128/67
[2021-05-09] MEDS: CEFTRIAXONE 2 GM in DEXTROSE 5% 50 ML IVPB SCH (16:55)
[2021-05-09] MEDS: AZITHROMYCIN 500 MG in SODIUM CHLORIDE 0.9% 250 ML IV SCH (17:39)
[2021-05-09 18:39] VITALS: BP 148/75
[2021-05-09] MEDS: ATORVASTATIN 20 MG TABLET PO SCH (20:26)
[2021-05-10 02:18] VITALS: BP 151/87
[2021-05-10] MEDS: methylPREDNISolone SOD SUCC 125 MG/2 ML IVPush SCH ×4 (02:18→20:44)
[2021-05-10 05:00] LABS: BASOPHILS % (AUTO) 0 % (0-1); EOSINOPHILS % (AUTO) 0 % (1-7); LYMPHOCYTES % (AUTO) 9 % (22-44); MEAN CORPUSCULAR HGB CONC 34.1 g/dL (33.2-36.2); MEAN PLATELET VOLUME 6.9 fL (7.4-10.4); MONOCYTES % (AUTO) 4 % (2-9); NEUTROPHILS % (AUTO) 88 % (42-75); PLATELET COUNT 266 x10^3/uL (130-400); RED BLOOD COUNT 3.75 x10^6/uL (4.38-5.82); RED CELL DISTRIBUTION WIDTH 13.4 % (9.4-14.8)
[2021-05-10] MEDS: HEPARIN 5,000 UNITS/ML, 1ML SQ SCH ×4 (05:00→20:45)
[2021-05-10 05:11] LABS: ANION GAP 6 mmol/L (5-15); CALCIUM 8.5 mg/dL (8.5-10.1); CHLORIDE 104 mmol/L (98-107); CREATININE 0.56 mg/dL (0.7-1.3)
[2021-05-10] MEDS: OMEPRAZOLE 20 MG CAPSULE.DR PO SCH ×2 (05:20→16:08)
[2021-05-10 07:06] VITALS: BP 146/85
[2021-05-10] MEDS: SODIUM CHLORIDE FLUSH 10ML SYR IVF SCH ×2 (09:00→20:44)
[2021-05-10] MEDS: SENNA/DOCUSATE TABLET PO SCH (09:00)
[2021-05-10] MEDS: FLUTICASONE/VILANTEROL 200-25MCG/INH INH SCH (09:12)
[2021-05-10] MEDS: ALBUTEROL-IPRATROPIUM MDI INH INH SCH ×4 (09:12→20:00)
[2021-05-10] MEDS: TAMSULOSIN 0.4 MG CAP.ER.24H PO SCH (09:12)
[2021-05-10 14:18] VITALS: BP 128/65
[2021-05-10] MEDS: AZITHROMYCIN 500 MG in SODIUM CHLORIDE 0.9% 250 ML IV SCH (16:13)
[2021-05-10] MEDS: CEFTRIAXONE 2 GM in DEXTROSE 5% 50 ML IVPB SCH (17:18)
[2021-05-10] MEDS: ATORVASTATIN 20 MG TABLET PO SCH (20:44)
[2021-05-10] MEDS: ACETAMINOPHEN 325 MG TABLET PO PRN (20:44)
[2021-05-10 21:00] VITALS: BP 133/76
[2021-05-11] MEDS: methylPREDNISolone SOD SUCC 125 MG/2 ML IVPush SCH ×2 (01:59→09:12)
[2021-05-11 02:02] VITALS: BP 135/80
[2021-05-11] MEDS: HEPARIN 5,000 UNITS/ML, 1ML SQ SCH ×3 (05:00→20:12)
[2021-05-11] MEDS: ALBUTEROL-IPRATROPIUM MDI INH INH SCH ×4 (06:16→20:00)
[2021-05-11] MEDS: OMEPRAZOLE 20 MG CAPSULE.DR PO SCH ×2 (06:17→17:14)
[2021-05-11 06:36] VITALS: BP 154/76
[2021-05-11] MEDS: SENNA/DOCUSATE TABLET PO SCH (09:12)
[2021-05-11] MEDS: TAMSULOSIN 0.4 MG CAP.ER.24H PO SCH (09:12)
[2021-05-11] MEDS: SODIUM CHLORIDE FLUSH 10ML SYR IVF SCH ×2 (09:13→20:13)
[2021-05-11] MEDS: FLUTICASONE/VILANTEROL 200-25MCG/INH INH SCH (09:15)
[2021-05-11 12:33] VITALS: BP 118/70
[2021-05-11] MEDS: FLUTICASONE NASAL SPRAY 16GM NAS PRN (17:14)
[2021-05-11] MEDS: CEFTRIAXONE 2 GM in DEXTROSE 5% 50 ML IVPB SCH (17:14)
[2021-05-11 20:08] VITALS: BP 129/75
[2021-05-11] MEDS: SUCRALFATE 1 GM TABLET PO SCH (20:12)
[2021-05-11] MEDS: ATORVASTATIN 20 MG TABLET PO SCH (20:12)
[2021-05-11] MEDS: ACETAMINOPHEN 325 MG TABLET PO PRN (20:13)
[2021-05-12 00:19] VITALS: BP 129/79
[2021-05-12] MEDS: HEPARIN 5,000 UNITS/ML, 1ML SQ SCH ×3 (05:00→21:04)
[2021-05-12] MEDS: OMEPRAZOLE 20 MG CAPSULE.DR PO SCH ×2 (05:24→15:46)
[2021-05-12 06:41] LABS: BASOPHILS % (AUTO) 0 % (0-1); EOSINOPHILS % (AUTO) 0 % (1-7); LYMPHOCYTES % (AUTO) 22 % (22-44); MEAN CORPUSCULAR HEMOGLOBIN 33.7 pg (27.5-34.5); MEAN CORPUSCULAR HGB CONC 34.3 g/dL (33.2-36.2); MONOCYTES % (AUTO) 10 % (2-9); NEUTROPHILS % (AUTO) 67 % (42-75); PLATELET COUNT 271 x10^3/uL (130-400); RED BLOOD COUNT 3.86 x10^6/uL (4.38-5.82); RED CELL DISTRIBUTION WIDTH 13.4 % (9.4-14.8)
[2021-05-12 06:47] LABS: ALANINE AMINOTRANSFERASE 35 U/L (12-78); ALBUMIN 2.3 g/dL (3.4-5.0); ANION GAP 5 mmol/L (5-15); CHLORIDE 105 mmol/L (98-107); CREATININE 0.58 mg/dL (0.7-1.3)
[2021-05-12 06:50] LABS: ALKALINE PHOSPHATASE 36 U/L (45-117); BILIRUBIN,TOTAL 0.3 mg/dL (0.2-1.0); TOTAL PROTEIN 5.3 g/dL (6.4-8.2)
[2021-05-12 07:28] VITALS: BP 141/84
[2021-05-12] MEDS: SENNA/DOCUSATE TABLET PO SCH (07:36)
[2021-05-12] MEDS: SODIUM CHLORIDE FLUSH 10ML SYR IVF SCH ×2 (07:36→21:04)
[2021-05-12] MEDS: SUCRALFATE 1 GM TABLET PO SCH ×4 (07:36→21:04)
[2021-05-12] MEDS: ALBUTEROL-IPRATROPIUM MDI INH INH SCH ×4 (07:36→21:03)
[2021-05-12] MEDS: TAMSULOSIN 0.4 MG CAP.ER.24H PO SCH (07:36)
[2021-05-12] MEDS: FLUTICASONE/VILANTEROL 200-25MCG/INH INH SCH (07:38)
[2021-05-12] MEDS: FLUTICASONE NASAL SPRAY 16GM NAS PRN (11:26)
[2021-05-12 14:30] VITALS: BP 119/64
[2021-05-12 20:15] VITALS: BP 120/73
[2021-05-12] MEDS: ATORVASTATIN 20 MG TABLET PO SCH (21:04)
[2021-05-13 00:11] VITALS: BP 114/72
[2021-05-13] MEDS: HEPARIN 5,000 UNITS/ML, 1ML SQ SCH ×2 (05:07→12:20)
[2021-05-13] MEDS: ALBUTEROL-IPRATROPIUM MDI INH INH SCH ×3 (05:49→15:14)
[2021-05-13] MEDS: OMEPRAZOLE 20 MG CAPSULE.DR PO SCH ×2 (05:49→15:20)
[2021-05-13] MEDS: SUCRALFATE 1 GM TABLET PO SCH ×3 (05:49→15:19)
[2021-05-13 07:54] VITALS: BP 139/71
[2021-05-13] MEDS ORDERED: IBUPROFEN 200 MG TABLET PO PRN (08:00)
[2021-05-13] MEDS: TAMSULOSIN 0.4 MG CAP.ER.24H PO SCH (09:09)
[2021-05-13] MEDS: SODIUM CHLORIDE FLUSH 10ML SYR IVF SCH (09:09)
[2021-05-13] MEDS: FLUTICASONE/VILANTEROL 200-25MCG/INH INH SCH (09:10)
[2021-05-13] MEDS: SENNA/DOCUSATE TABLET PO SCH (09:13)
[2021-05-13 14:20] VITALS: BP 104/72
[2021-05-13] MEDS ORDERED: ALBU18HF INH (15:33)
[2021-05-13] MEDS ORDERED: BUDE10.22 INH (15:33)
== END 2021-05-13 16:20 | disposition home or self-care (01) | DRG 189 ==
LOC: ED 18:00 → EDIP 18:37 → 4WST 20:24
PROVIDERS: ADMIT Emergency Medicine; ATTEND Family Medicine
DX: J96.21 Acute and chronic respiratory failure with hypoxia (principal); E87.2 Acidosis; J43.9 Emphysema, unspecified; J96.22 Acute and chronic respiratory failure with hypercapnia; Z20.822 Contact with and (suspected) exposure to COVID-19; D53.9 Nutritional anemia, unspecified; E78.5 Hyperlipidemia, unspecified; F17.210 Nicotine dependence, cigarettes, uncomplicated; K59.00 Constipation, unspecified; I10 Essential (primary) hypertension; I25.10 Atherosclerotic heart disease of native coronary artery without angina pectoris; N40.0 Benign prostatic hyperplasia without lower urinary tract symptoms; Z59.0 Homelessness; Z80.42 Family history of malignant neoplasm of prostate; Z82.49 Family history of ischemic heart disease and other diseases of the circulatory system; Z86.73 Personal history of transient ischemic attack (TIA), and cerebral infarction without residual deficits; Z88.0 Allergy status to penicillin; Z95.5 Presence of coronary angioplasty implant and graft; Z79.899 Other long term (current) drug therapy; Z88.6 Allergy status to analgesic agent; Z88.8 Allergy status to other drugs, medicaments and biological substances
CPT/HCPCS: 36415; 36600; 71045; 71275; 80048; 80053; 82607; 82803; 83605; 83735; 83880; 84100; 84145; 84484; 85025; 87040; 93005; 94644; 96374; G0378; J0456; J0696; J1644; J7644; Q9967; U0005; J2930; J7050; J7512; Q0177; U0003